=== PATIENT | female | born 1935 | race Caucasian/White ===

== ENCOUNTER → 2016-08-29 | Outpatient (CLI) | payer MEDICARE, BC ==
--- NOTE | 2016-09-02 07:56 | MM ---
Reason for exam: screening (asymptomatic). Last mammogram was performed 1 year ago. History: Patient is postmenopausal. Family history of premenopausal breast cancer in grandmother at age 27. Benign right mammotome panel of the right breast, February 06, 2005. Benign right mammotome panel of the right breast, February 06, 2005. Benign excisional biopsy of the left breast, October 15, 2001. Benign stereotactic core biopsy of the left breast, January 22, 2001. Benign core biopsy of the left breast. Benign excisional biopsy of the left breast. Physical Findings: A clinical breast exam by your physician is recommended on an annual basis and results should be correlated with mammographic findings. MG 3D Screening Mammo W/Cad Bilateral CC and MLO view(s) were taken. Prior study comparison: August 18, 2015, bilateral MG 3d screening mammo w/cad. August 09, 2014, bilateral MG screening mammo w CAD. There are scattered fibroglandular densities. Finding #1: There is a typically benign masses in the right breast, stable. Finding #2: There are numerous typically benign diffuse calcifications in both breasts. No significant changes in finding since August 09, 2014. Left pacemaker over axilla. ASSESSMENT: Benign, BI-RAD 2 RECOMMENDATION: Routine screening mammogram of both breasts in 1 year.
== END | disposition home or self-care (01) ==
LOC: RADMAMWWP 11:08
PROVIDERS: ATTEND Family Medicine
DX: Z12.31 Encounter for screening mammogram for malignant neoplasm of breast (principal)
CPT/HCPCS: 77063; G0202

== ENCOUNTER → 2017-10-28 | Outpatient (CLI) | payer MEDICARE, BC ==
--- NOTE | 2017-10-30 07:57 | MM ---
Reason for exam: screening (asymptomatic). Last mammogram was performed 1 year and 2 months ago. History: Patient is postmenopausal. Family history of premenopausal breast cancer in grandmother at age 27. Benign right mammotome panel of the right breast, February 06, 2005. Benign right mammotome panel of the right breast, February 06, 2005. Benign excisional biopsy of the left breast, October 15, 2001. Benign stereotactic core biopsy of the left breast, January 22, 2001. Benign core biopsy of the left breast. Benign excisional biopsy of the left breast. Physical Findings: A clinical breast exam by your physician is recommended on an annual basis and results should be correlated with mammographic findings. MG 3D Screening Mammo W/Cad Bilateral CC and MLO view(s) were taken. Prior study comparison: August 29, 2016, bilateral MG 3d screening mammo w/cad. August 18, 2015, bilateral MG 3d screening mammo w/cad. The breast tissue is heterogeneously dense. This may lower the sensitivity of mammography. There is a benign appearing oval circumscribed stable anterior depth right lower inner quadrant mass. Benign appearing bilateral calcifications. No suspicious abnormality. Left cardiac device. No significant changes when compared with prior studies. ASSESSMENT: Benign, BI-RAD 2 RECOMMENDATION: Routine screening mammogram of both breasts in 1 year.
== END | disposition home or self-care (01) ==
LOC: RADMAMWWP 07:56
PROVIDERS: ATTEND Family Medicine
DX: Z12.31 Encounter for screening mammogram for malignant neoplasm of breast (principal)
CPT/HCPCS: 77063; 77067

== ENCOUNTER → 2018-01-17 | Outpatient (CLI) | payer MEDICARE, BC ==
--- NOTE | 2018-01-18 09:40 | CT ---
EXAMINATION TYPE: CT lumbar spine wo con DATE OF EXAM: 01/17/2018 9:49 AM COMPARISON: None HISTORY: Scoliosis, spinal stenosis CT DLP: 507.3 mGycm Automated exposure control for dose reduction was used. Unenhanced CT of the lumbar spine was performed. Bone and soft tissue window settings are submitted as well as coronal and sagittal reconstructions. There are bilateral punctate nonobstructing renal calculi bilaterally. Extensive vascular calcificati ons are seen. There is a levoscoliosis of the vertebral column with multilevel moderate to severe degenerative disc disease and the most marked findings at levels L2-3, L4-5 and L5-S1. No compression deformities. L1-L2: Hypertrophic change of the facets. There is a calcification in the right neural foramina. Lorena ures 3 mm. No canal stenosis or focal herniation L2-L3: Severe degenerative disc disease. There is more advanced facet arthropathy greater on the righ t with mild bilateral foraminal encroachment. No central stenosis. L3-L4: Degenerative disc disease with advanced facet arthropathy. There is mild bilateral foraminal e ncroachment. No evidence of canal stenosis. L4-L5: Grade 1 anterolisthesis with severe facet arthropathy. Moderate to severe central stenosis and moderate bilateral foraminal encroachment L5-S1: Severe degenerative disc space. Advanced facet arthropathy with moderate bilateral foraminal e ncroachment. Mild central disc bulging effaces the thecal sac and likely results in component of cent ral stenosis. Note is made to due to noncontrast technique assessment spinal canal is somewhat limited due to corre lation recommended. IMPRESSION: 1. Levoscoliosis with multilevel moderate to severe degenerative disc disease as discussed above. 2. Grade 1 anterolisthesis L4 and L5 appears degenerative with severe facet arthropathy. Findings res ult in moderate to severe central stenosis and bilateral foraminal encroachment. 3. Disc bulging with hypertrophic changes L5-S1 results in borderline to mild central stenosis and bi lateral foraminal encroachment.
== END ==
LOC: RADCTMAIN 08:44
PROVIDERS: ATTEND Physical Medicine & Rehabilitation
DX: M48.07 Spinal stenosis, lumbosacral region (principal); M43.16 Spondylolisthesis, lumbar region; M51.17 Intervertebral disc disorders with radiculopathy, lumbosacral region; M41.86 Other forms of scoliosis, lumbar region; M46.96 Unspecified inflammatory spondylopathy, lumbar region
CPT/HCPCS: 72131

== ENCOUNTER → 2018-02-02 | Outpatient (CLI) | payer MEDICARE, BC ==
[2018-02-02 10:03] LABS: INR 1.1 (<1.2)
== END ==
LOC: LABWHC1 09:04
PROVIDERS: ATTEND Physical Medicine & Rehabilitation
DX: M48.062 Spinal stenosis, lumbar region with neurogenic claudication (principal); M43.16 Spondylolisthesis, lumbar region; M47.27 Other spondylosis with radiculopathy, lumbosacral region; M41.26 Other idiopathic scoliosis, lumbar region; I11.9 Hypertensive heart disease without heart failure; R20.2 Paresthesia of skin; Z68.27 Body mass index [BMI] 27.0-27.9, adult; Z51.81 Encounter for therapeutic drug level monitoring; Z79.01 Long term (current) use of anticoagulants
CPT/HCPCS: 36415; 85610

== ENCOUNTER → 2018-02-23 | Outpatient (CLI) | payer MEDICARE, BC ==
[2018-02-23 10:37] LABS: INR 1.2 (<1.2); Prothrombin Time 11.9 sec (9.0-12.0)
== END | disposition home or self-care (01) ==
LOC: LABWHC1 08:39
PROVIDERS: ATTEND Physical Medicine & Rehabilitation
DX: M48.062 Spinal stenosis, lumbar region with neurogenic claudication (principal); M41.26 Other idiopathic scoliosis, lumbar region; M43.16 Spondylolisthesis, lumbar region; M47.26 Other spondylosis with radiculopathy, lumbar region; M47.818 Spondylosis without myelopathy or radiculopathy, sacral and sacrococcygeal region; I11.9 Hypertensive heart disease without heart failure; R20.2 Paresthesia of skin; Z79.01 Long term (current) use of anticoagulants; Z95.0 Presence of cardiac pacemaker
CPT/HCPCS: 36415; 85610

== ENCOUNTER → 2018-03-25 | Outpatient (CLI) | payer MEDICARE, BC ==
[2018-03-25 11:55] LABS: INR 1.5 (<1.2); Prothrombin Time 13.8 sec (9.0-12.0)
== END | disposition home or self-care (01) ==
LOC: LABWHC1 09:51
PROVIDERS: ATTEND Physical Medicine & Rehabilitation
DX: Z51.81 Encounter for therapeutic drug level monitoring (principal); I51.9 Heart disease, unspecified; I10 Essential (primary) hypertension; Z79.01 Long term (current) use of anticoagulants
CPT/HCPCS: 36415; 85610

== ENCOUNTER → 2018-04-13 | Outpatient (CLI) | payer MEDICARE, BC ==
[2018-04-13 09:48] LABS: INR 1.1 (<1.2); Prothrombin Time 11.9 sec (9.0-12.0)
== END ==
LOC: LABWHC1 08:33
PROVIDERS: ATTEND Physical Medicine & Rehabilitation
DX: M48.062 Spinal stenosis, lumbar region with neurogenic claudication (principal); M41.26 Other idiopathic scoliosis, lumbar region; M47.817 Spondylosis without myelopathy or radiculopathy, lumbosacral region; M43.16 Spondylolisthesis, lumbar region; Z51.81 Encounter for therapeutic drug level monitoring; Z79.01 Long term (current) use of anticoagulants
CPT/HCPCS: 36415; 85610

== ENCOUNTER → 2018-08-03 | Outpatient (CLI) | payer MEDICARE, BC ==
[2018-08-03 10:13] LABS: INR 1.1 (<1.2); Prothrombin Time 11.3 sec (9.0-12.0)
== END | disposition home or self-care (01) ==
LOC: LABWHC1 08:20
PROVIDERS: ATTEND Physical Medicine & Rehabilitation
DX: Z51.81 Encounter for therapeutic drug level monitoring (principal); Z79.01 Long term (current) use of anticoagulants
CPT/HCPCS: 36415; 85610

== ENCOUNTER 2018-08-24 08:08 | Inpatient (IN) | payer MEDICARE, BC ==
--- NOTE | 2018-08-24 08:36 | ED ---
General Adult HPI - General Chief complaint: GI Bleed Stated complaint: rectal bleeding Time Seen by Provider: 08/24/18 08:10 Source: patient, RN notes reviewed Mode of arrival: ambulatory Limitations: no limitations - History of Present Illness Initial comments: This is an 82-year-old female who presents emergency Department complaining of rectal bleeding. Patient states it started yesterday afternoon he continued to the evening. Patient states she's had no pain she has not lightheaded or dizzy. Patient denies any shortness of breath or difficulty breathing. Patient states she has a history of hemorrhoids. She does have a history of some bleeding but not this much. Patient states she is on Coumadin for atrial fibrillation. Patient denies any other symptoms at this time. - Related Data Home Medications Medication Instructions Recorded Confirmed Levothyroxine Sodium [Synthroid] 25 mcg PO DAILY 12/13/13 08/24/18 Lisinopril [Prinivil] 20 mg PO BID 12/13/13 08/24/18 Metoprolol Tartrate [Lopressor] 25 mg PO BID 12/13/13 08/24/18 amLODIPine 5 mg PO BID 12/13/13 08/24/18 Aspirin 81 mg PO DAILY 05/08/14 08/24/18 Calcium Carbonate/Vitamin D3 1 each PO DAILY 08/05/14 08/24/18 [Calcium 600 + Vit D Tablet] Hydrochlorothiazide 25 mg PO DAILY 08/05/14 08/24/18 Pravastatin Sodium [Pravachol] 20 mg PO DAILY 08/05/14 08/24/18 Warfarin [Coumadin] 5 mg PO DAILY 08/24/18 08/24/18 Allergies Allergy/AdvReac Type Severity Reaction Status Date / Time narcotic AdvReac Nausea & Uncoded 08/24/18 08:34 Vomiting Review of Systems ROS Statement: Those systems with pertinent positive or pertinent negative responses have been documented in the HPI. ROS Other: All systems not noted in ROS Statement are negative. Past Medical History Past Medical History: Coronary Artery Disease (CAD), Hypertension, Thyroid Disorder Additional Past Medical History / Comment(s): afib, sinus bradycardia History of Any Multi-Drug Resistant Organisms: None Reported Past Surgical History: AICD, Heart Catheterization, Tonsillectomy, Tubal Ligation Additional Past Surgical History / Comment(s): pacemaker Past Anesthesia/Blood Transfusion Reactions: No Reported Reaction Past Psychological History: No Psychological Hx Reported Smoking Status: Never smoker Past Alcohol Use History: Occasional Past Drug Use History: None Reported General Exam - General Exam Comments Initial Comments: GENERAL: Patient is well-developed and well-nourished. Patient is nontoxic and well- hydrated and is in distress. ENT: Neck is soft and supple. No significant lymphadenopathy is noted. Oropharynx is clear. Moist mucous membranes. Neck has full range of motion without eliciting any pain. EYES: The sclera were anicteric and conjunctiva were pink and moist. Extraocular movements were intact and pupils were equal round and reactive to light. Eyelids were unremarkable. PULMONARY: Unlabored respirations. Good breath sounds bilaterally. No audible rales rhonchi or wheezing was noted. CARDIOVASCULAR: There is a regular rate and rhythm without any murmurs gallops or rubs. ABDOMEN: Soft and nontender with normal bowel sounds. No palpable organomegaly was noted. There is no palpable pulsatile mass. SKIN: Skin is clear with no lesions or rashes and otherwise unremarkable. NEUROLOGIC: Patient is alert and oriented x3. Cranial nerves II through XII are grossly intact. Motor and sensory are also intact. Normal speech, volume and content. Symmetrical smile. MUSCULOSKELETAL: Normal extremities with adequate strength and full range of motion. LYMPHATICS: No significant lymphadenopathy is noted PSYCHIATRIC: Normal psychiatric evaluation. Limitations: no limitations Course Vital Signs 08/24/18 08:09 Temperature 97.8 F Pulse Rate 92 Respiratory 18 Rate Blood Pressure 121/79 O2 Sat by Pulse 98 Oximetry Medical Decision Making - Medical Decision Making Patient had no active bleeding while in the emergency department. I did a rectal exam on the patient I saw no obvious sites of bleeding. - Lab Data Result diagrams: 08/24/18 08:35 08/24/18 08:35 Lab Results 08/24/18 08/24/18 08/24/18 Range/Units 08:35 08:35 08:35 WBC 10.4 (3.8-10.6) k/uL RBC 4.45 (3.80-5.40) m/uL Hgb 14.1 (11.4-16.0) gm/dL Hct 41.5 (34.0-46.0) % MCV 93.2 (80.0-100.0) fL MCH 31.7 (25.0-35.0) pg MCHC 34.0 (31.0-37.0) g/dL RDW 13.1 (11.5-15.5) % Plt Count 355 (150-450) k/uL Neutrophils % 81 % Lymphocytes % 11 % Monocytes % 6 % Eosinophils % 1 % Basophils % 0 % Neutrophils # 8.4 H (1.3-7.7) k/uL Lymphocytes # 1.1 (1.0-4.8) k/uL Monocytes # 0.6 (0-1.0) k/uL Eosinophils # 0.1 (0-0.7) k/uL Basophils # 0.0 (0-0.2) k/uL PT 20.6 H (9.0-12.0) sec INR 2.1 H (<1.2) APTT 30.7 H (22.0-30.0) sec Sodium 135 L (137-145) mmol/L Potassium 3.1 L (3.5-5.1) mmol/L Chloride 99 (98-107) mmol/L Carbon Dioxide 27 (22-30) mmol/L Anion Gap 9 mmol/L BUN 17 (7-17) mg/dL Creatinine 0.55 (0.52-1.04) mg/dL Est GFR (CKD-EPI)AfAm >90 (>60 ml/min/1.73 sqM) Est GFR (CKD-EPI)NonAf 88 (>60 ml/min/1.73 sqM) Glucose 133 H (74-99) mg/dL Calcium 9.5 (8.4-10.2) mg/dL Total Bilirubin 1.1 (0.2-1.3) mg/dL AST 26 (14-36) U/L ALT 35 (9-52) U/L Alkaline Phosphatase 80 (38-126) U/L Troponin I (0.000-0.034) ng/mL Total Protein 6.8 (6.3-8.2) g/dL Albumin 4.1 (3.5-5.0) g/dL Blood Type Blood Type Confirm Blood Type Recheck Antibody Screen Spec Expiration Date 08/24/18 08/24/18 08/24/18 Range/Units 08:35 08:35 09:29 WBC (3.8-10.6) k/uL RBC (3.80-5.40) m/uL Hgb (11.4-16.0) gm/dL Hct (34.0-46.0) % MCV (80.0-100.0) fL MCH (25.0-35.0) pg MCHC (31.0-37.0) g/dL RDW (11.5-15.5) % Plt Count (150-450) k/uL Neutrophils % % Lymphocytes % % Monocytes % % Eosinophils % % Basophils % % Neutrophils # (1.3-7.7) k/uL Lymphocytes # (1.0-4.8) k/uL Monocytes # (0-1.0) k/uL Eosinophils # (0-0.7) k/uL Basophils # (0-0.2) k/uL PT (9.0-12.0) sec INR (<1.2) APTT (22.0-30.0) sec Sodium (137-145) mmol/L Potassium (3.5-5.1) mmol/L Chloride (98-107) mmol/L Carbon Dioxide (22-30) mmol/L Anion Gap mmol/L BUN (7-17) mg/dL Creatinine (0.52-1.04) mg/dL Est GFR (CKD-EPI)AfAm (>60 ml/min/1.73 sqM) Est GFR (CKD-EPI)NonAf (>60 ml/min/1.73 sqM) Glucose (74-99) mg/dL Calcium (8.4-10.2) mg/dL Total Bilirubin (0.2-1.3) mg/dL AST (14-36) U/L ALT (9-52) U/L Alkaline Phosphatase (38-126) U/L Troponin I <0.012 (0.000-0.034) ng/mL Total Protein (6.3-8.2) g/dL Albumin (3.5-5.0) g/dL Blood Type O Positive Blood Type Confirm O Positive Blood Type Recheck CABO Indicated Antibody Screen NEGATIVE Spec Expiration Date 08/27/2018 - 2334 Disposition Clinical Impression: Gastrointestinal hemorrhage Disposition: ADMITTED IP TO THIS [facility] Referrals: Mil Mujica III, MD [Primary Care Provider] - 1-2 days Time of Disposition: 09:49
[2018-08-24 08:49] LABS: Basophils % (A) 0 %; Eosinophils # (A) 0.1 k/uL (0-0.7); Eosinophils % (A) 1 %; HCT 41.5 % (34.0-46.0); HGB 14.1 gm/dL (11.4-16.0); Lymphocytes # (A) 1.1 k/uL (1.0-4.8); Lymphocytes % (A) 11 %; MCH 31.7 pg (25.0-35.0); MCV 93.2 fL (80.0-100.0); Mean Platelet Volume 6.8; Monocytes # (A) 0.6 k/uL (0-1.0); Monocytes % (A) 6 %; Neutrophils # (A) 8.4 k/uL (1.3-7.7); Neutrophils % (A) 81 %; Platelet Count 355 k/uL (150-450); RBC 4.45 m/uL (3.80-5.40); RDW 13.1 % (11.5-15.5); WBC 10.4 k/uL (3.8-10.6)
[2018-08-24 08:57] LABS: INR 2.1 (<1.2)
[2018-08-24 08:58] LABS: ALT 35 U/L (9-52); AST 26 U/L (14-36); Albumin 4.1 g/dL (3.5-5.0); Alkaline Phosphatase 80 U/L (38-126); Anion Gap 9 mmol/L; Blood Urea Nitrogen 17 mg/dL (7-17); Calcium 9.5 mg/dL (8.4-10.2); Carbon Dioxide 27 mmol/L (22-30); Chloride 99 mmol/L (98-107); Glucose 133 mg/dL (74-99); Partial Thromboplastin Time 30.7 sec (22.0-30.0); Potassium 3.1 mmol/L (3.5-5.1); Prothrombin Time 20.6 sec (9.0-12.0); Sodium 135 mmol/L (137-145); Total Bilirubin 1.1 mg/dL (0.2-1.3); Total Protein 6.8 g/dL (6.3-8.2)
[2018-08-24] MEDS ORDERED: SODIUM CHLORIDE 0.9% 1,000 ML IV ONE (09:49)
[2018-08-24 12:03] VITALS: BMI 27.4
--- NOTE | 2018-08-24 14:33 | P.HPIM ---
History of Present Illness This is a pleasant 82 years old female with past medical history of atrial fibrillation on anticoagulation, hyperlipidemia, hypertension, hypothyroidism, bradycardia status post pacemaker, coronary artery disease status post AICD h istory of hemorrhoids and kidney stones. She is a patient of Dr. Dr. Mujica. Who presents because of GI bleed, patient had blood in stool, as a fresh blood however she couldn't tell the color of her on stool. Patient has a picture at bedside in her mobile phone for blood in her underwear. Patient complaining of from mild lower abdominal pain which was more severe yesterday but today is milder that comes and go and by the time I see the patient she was pain-free. Her abdominal examination was benign. She said that the pain felt like gas. She also vomited once with no blood in it. She states that she takes the Coumadin for her atrial fibrillation, no previous thrombosis in her leg, lung or heart as per patient. And she says she has pacemaker but no stents in her heart. On admission her Coumadin and aspirin are held Vitals are stable. Hemoglobin 14.1, rest of labs looks unremarkable except for low potassium at 3.1 and INR of 2.1 Patient was on no muscle and 75 mL/h, we'll order to 50 mL per hour as patient blood pressure and hemoglobin are stable currently Review of Systems CONSTITUTIONAL: No fever, no malaise, no fatigue. HEENT: No recent visual problems or hearing problems. Denied any sore throat. CARDIOVASCULAR: No orthopnea, PND, no palpitations, no syncope. PULMONARY: No shortness of breath, no cough, no hemoptysis. GASTROINTESTINAL: No diarrhea, no nausea, no vomiting, no abdominal pain. Normoactive bowel sounds. NEUROLOGICAL: No headaches, no weakness, no numbness. HEMATOLOGICAL: Denies any bleeding or petechiae. GENITOURINARY: Denies any burning micturition, frequency, or urgency. MUSCULOSKELETAL/RHEUMATOLOGICAL: Denies any joint pain, swelling, or any muscle pain. ENDOCRINE: Denies any polyuria or polydipsia. Past Medical History Past Medical History: Atrial Fibrillation, Hyperlipidemia, Hypertension, Thyroid Disorder Additional Past Medical History / Comment(s): Bradycardia with pacemaker, past slight lower GI bleed, hemorrhoids, hypothyroid, nephrolithiasis. History of Any Multi-Drug Resistant Organisms: None Reported Past Surgical History: AICD, Breast Surgery, Heart Catheterization, Pacemaker, Tonsillectomy, Tubal Ligation Additional Past Surgical History / Comment(s): pacemaker, lithotripsy, bilateral breast benign bxs, + blood per cologard-colonoscopy about 05/2017-normal Past Anesthesia/Blood Transfusion Reactions: No Reported Reaction Type of Cardiac Device: Permanent Pacemaker Device Placement Date:: 2013 Smoking Status: Never smoker - Past Family History Father Family Medical History: Myocardial Infarction (DC) Additional Family Medical History / Comment(s): Father of a DC at the age of 63 yrs. Mother Additional Family Medical History / Comment(s): Mother had issues with alcohol and PDA. Medications and Allergies Home Medications Medication Instructions Recorded Confirmed Type Levothyroxine Sodium [Synthroid] 25 mcg PO DAILY 12/13/13 08/24/18 History Lisinopril [Prinivil] 20 mg PO BID 12/13/13 08/24/18 History Metoprolol Tartrate [Lopressor] 25 mg PO BID 12/13/13 08/24/18 History amLODIPine 5 mg PO BID 12/13/13 08/24/18 History Aspirin 81 mg PO DAILY 05/08/14 08/24/18 History Calcium Carbonate/Vitamin D3 1 each PO DAILY 08/05/14 08/24/18 History [Calcium 600 + Vit D Tablet] Hydrochlorothiazide 25 mg PO DAILY 08/05/14 08/24/18 History Pravastatin Sodium [Pravachol] 20 mg PO DAILY 08/05/14 08/24/18 History Warfarin [Coumadin] 5 mg PO DAILY 08/24/18 08/24/18 History Allergies Allergy/AdvReac Type Severity Reaction Status Date / Time narcotic AdvReac Nausea & Uncoded 08/24/18 08:34 Vomiting Physical Exam Vitals: Vital Signs Temp Pulse Resp BP Pulse Ox 08/24/18 10:11 71 16 120/79 98 08/24/18 08:09 97.8 F 92 18 121/79 98 Intake and Output 08/23/18 08/24/18 08/24/18 22:59 06:59 14:59 Other: Weight 68.039 kg GENERAL: The patient is alert and oriented x3, not in any acute distress. Well developed, well nourished. HEENT: Pupils are round and equally reacting to light. EOMI. No scleral icterus. No conjunctival pallor. Normocephalic, atraumatic. No pharyngeal erythema. No thyromegaly. CARDIOVASCULAR: S1 and S2 present. No murmurs, rubs, or gallops. PULMONARY: Chest is clear to auscultation, no wheezing or crackles. ABDOMEN: Soft, nontender, nondistended, normoactive bowel sounds. No palpable organomegaly. MUSCULOSKELETAL: No joint swelling or deformity. EXTREMITIES: No cyanosis, clubbing, or pedal edema. NEUROLOGICAL: Gross neurological examination did not reveal any focal deficits. SKIN: No rashes. Results CBC & Chem 7: 08/24/18 08:35 08/24/18 08:35 Labs: Abnormal Lab Results - Last 24 Hours (Table) 08/24/18 08/24/18 08/24/18 Range/Units 08:35 08:35 08:35 Neutrophils # 8.4 H (1.3-7.7) k/uL PT 20.6 H (9.0-12.0) sec INR 2.1 H (<1.2) APTT 30.7 H (22.0-30.0) sec Sodium 135 L (137-145) mmol/L Potassium 3.1 L (3.5-5.1) mmol/L Glucose 133 H (74-99) mg/dL Thrombosis Risk Factor Assmnt - Choose All That Apply Any of the Below Risk Factors Present?: Yes Each Factor Represents 1 point: Obesity (BMI >25) Other Risk Factors: Yes Each Risk Factor Represents 3 Points: Age 75 years or older Other congenital or acquired thrombophilia - If yes, enter type in comment: No Thrombosis Risk Factor Assessment Total Risk Factor Score: 4 Thrombosis Risk Factor Assessment Level: Moderate Risk Assessment and Plan Assessment: Bleeding per rectum History of chronic atrial fibrillation on anticoagulation Hyperlipidemia Hypertension Hypothyroidism History of bradycardia status post pacemaker History of coronary artery disease. She is a status post AICD History of hemorrhoids Plan: This is a pleasant 82 years old female who presents because of GI bleeds. Hold Coumadin and aspirin total cleared by GI team. Consult gastroenterology. Continue with Protonix twice daily. Monitor vitals and hemoglobin Labs and medication were reviewed.. Continue same treatment. Continue with symptomatic treatment. Resume home medication. Monitor lytes and vitals. DVT and GI prophylaxis. Further recommendations of the clinical course of the patient DVT prophylaxis: No anticoagulation review of GI bleed GI Prophylaxis: Pepcid PT/OT: Pending Prognosis is guarded
[2018-08-24 16:04] LABS: Basophils % (A) 0 %; Eosinophils # (A) 0.1 k/uL (0-0.7); Eosinophils % (A) 1 %; HCT 40.8 % (34.0-46.0); HGB 13.7 gm/dL (11.4-16.0); Lymphocytes # (A) 1.9 k/uL (1.0-4.8); Lymphocytes % (A) 18 %; MCH 31.3 pg (25.0-35.0); MCHC 33.5 g/dL (31.0-37.0); MCV 93.4 fL (80.0-100.0); Monocytes # (A) 0.5 k/uL (0-1.0); Monocytes % (A) 5 %; Neutrophils # (A) 7.7 k/uL (1.3-7.7); Neutrophils % (A) 74 %; Platelet Count 346 k/uL (150-450); RBC 4.37 m/uL (3.80-5.40); RDW 13.5 % (11.5-15.5); WBC 10.4 k/uL (3.8-10.6)
[2018-08-24] MEDS: PANTOPRAZOLE 40 MG/10 ML VIAL IVP SCH (20:45)
[2018-08-24] MEDS: METOPROLOL TARTRATE 25 MG TAB PO SCH (20:45)
[2018-08-24] MEDS: LISINOPRIL 20 MG TAB PO SCH (20:45)
[2018-08-24] MEDS: amLODIPine 5 MG TAB PO SCH (20:45)
[2018-08-25] MEDS: LEVOTHYROXINE 25 MCG TAB PO SCH (06:17)
[2018-08-25 07:09] LABS: Basophils % (A) 0 %; Eosinophils # (A) 0.2 k/uL (0-0.7); Eosinophils % (A) 2 %; HCT 39.4 % (34.0-46.0); HGB 13.2 gm/dL (11.4-16.0); Lymphocytes # (A) 1.7 k/uL (1.0-4.8); Lymphocytes % (A) 19 %; MCHC 33.4 g/dL (31.0-37.0); MCV 92.8 fL (80.0-100.0); Mean Platelet Volume 6.9; Monocytes # (A) 0.5 k/uL (0-1.0); Monocytes % (A) 6 %; Neutrophils % (A) 70 %; Platelet Count 327 k/uL (150-450); RBC 4.25 m/uL (3.80-5.40); RDW 13.7 % (11.5-15.5); WBC 8.6 k/uL (3.8-10.6)
[2018-08-25 07:18] LABS: Anion Gap 6 mmol/L; Blood Urea Nitrogen 8 mg/dL (7-17); Calcium 9.1 mg/dL (8.4-10.2); Carbon Dioxide 27 mmol/L (22-30); Chloride 100 mmol/L (98-107); Glucose 106 mg/dL (74-99); Potassium 3.3 mmol/L (3.5-5.1); Sodium 133 mmol/L (137-145)
[2018-08-25] MEDS: PRAVASTATIN SODIUM 20 MG TAB PO SCH (07:47)
[2018-08-25] MEDS: METOPROLOL TARTRATE 25 MG TAB PO SCH ×2 (07:47→21:02)
[2018-08-25] MEDS: PANTOPRAZOLE 40 MG/10 ML VIAL IVP SCH ×2 (07:48→21:01)
[2018-08-25] MEDS: amLODIPine 5 MG TAB PO SCH ×2 (07:48→21:02)
[2018-08-25] MEDS: LISINOPRIL 20 MG TAB PO SCH ×2 (07:48→21:02)
[2018-08-25] MEDS: HYDROCHLOROTHIAZIDE 25 MG TAB PO SCH (07:48)
[2018-08-25] MEDS ORDERED: Potassium Replacement Protocol 1 EACH MISC MISCELLANE PRN ×2 (13:21→16:16)
--- NOTE | 2018-08-25 13:21 | P.PN ---
Subjective This is a pleasant 82 years old female with past medical history of atrial fibrillation on anticoagulation, hyperlipidemia, hypertension, hypothyroidism, bradycardia status post pacemaker, coronary artery disease status post AICD history of hemorrhoids and kidney stones. She is a patient of Dr. Dr. Mujica. Who presents because of GI bleed, patient had blood in stool, as a fresh blood however she couldn't tell the color of her on stool. Patient has a picture at bedside in her mobile phone for blood in her underwear. Patient complaining of from mild lower abdominal pain which was more severe yesterday but today is milder that comes and go and by the time I see the patient she was pain-free. Her abdominal examination was benign. She said that the pain felt like gas. She also vomited once with no blood in it. She states that she takes the Coumadin for her atrial fibrillation, no previous thrombosis in her leg, lung or heart as per patient. And she says she has pacemaker but no stents in her heart. On admission her Coumadin and aspirin are held Vitals are stable. Hemoglobin 14.1, rest of labs looks unremarkable except for low potassium at 3.1 and INR of 2.1 Patient was on no muscle and 75 mL/h, we'll order to 50 mL per hour as patient blood pressure and hemoglobin are stable currently 08/25/2018 Patient has no more episodes of bleeding per rectum. Vitals are Table. Hemoglobin is stable at 13.2 which is within normal limits. Sodium 133 and potassium 3.3. Replaced GI team are going to evaluate the patient. Continue with Protonix currently Objective - Vital Signs Vital signs: Vital Signs Temp 97.7 F 08/25/18 12:00 Pulse 69 08/25/18 12:00 Resp 18 08/25/18 12:00 BP 147/65 08/25/18 12:00 Pulse Ox 94 L 08/25/18 12:00 Intake & Output 08/24/18 08/25/18 08/25/18 18:59 06:59 18:59 Intake Total 360 600 Output Total 300 Balance 360 600 -300 Weight 68.039 kg 70.9 kg Intake: IV 600 0.9 600 Oral 360 Output: Urine 300 Other: Voiding Method Toilet Toilet # Voids 1 - Exam GENERAL: The patient is alert and oriented x3, not in any acute distress. Well developed, well nourished. HEENT: Pupils are round and equally reacting to light. EOMI. No scleral icterus. No conjunctival pallor. Normocephalic, atraumatic. No pharyngeal erythema. No thyromegaly. CARDIOVASCULAR: S1 and S2 present. No murmurs, rubs, or gallops. PULMONARY: Chest is clear to auscultation, no wheezing or crackles. ABDOMEN: Soft, nontender, nondistended, normoactive bowel sounds. No palpable organomegaly. MUSCULOSKELETAL: No joint swelling or deformity. EXTREMITIES: No cyanosis, clubbing, or pedal edema. NEUROLOGICAL: Gross neurological examination did not reveal any focal deficits. SKIN: No rashes. - Labs CBC & Chem 7: 08/25/18 06:14 08/25/18 06:14 Labs: Abnormal Lab Results - Last 24 Hours (Table) 08/25/18 Range/Units 06:14 Sodium 133 L (137-145) mmol/L Potassium 3.3 L (3.5-5.1) mmol/L Creatinine 0.46 L (0.52-1.04) mg/dL Glucose 106 H (74-99) mg/dL Assessment and Plan Assessment: Bleeding per rectum History of chronic atrial fibrillation on anticoagulation Hyperlipidemia Hypertension Hypothyroidism History of bradycardia status post pacemaker History of coronary artery disease. She is a status post AICD History of hemorrhoids Plan: This is a pleasant 82 years old female who presents because of GI bleeds. Hold Coumadin and aspirin total cleared by GI team. Consult gastroenterology. Continue with Protonix twice daily. Monitor vitals and hemoglobin Labs and medication were reviewed.. Continue same treatment. Continue with symptomatic treatment. Resume home medication. Monitor lytes and vitals. DVT and GI prophylaxis. Further recommendations of the clinical course of the patient DVT prophylaxis: No anticoagulation review of GI bleed GI Prophylaxis: Pepcid PT/OT: Pending Prognosis is guarded
--- NOTE | 2018-08-25 13:25 | P.CONS ---
History of Present Illness - Reason for Consult Consult date: 08/25/18 GI bleed hematochezia Requesting physician: Landon E Sheet - Chief Complaint rectal bleeding - History of Present Illness 82-year-old female with a past medical history of atrial fibrillation maintained on warfarin, colonic diverticulosis, pacemaker,hypertension, hyperlipidemia admitted with episode of rectal bleeding yesterday. Patient states she ate at [employer] developed some mild abdominal discomfort mostly in the lower quadrants and passed a grossly bloody bowel movement with clots. No recurrence of GI bleeding. No history GI bleeding. No history of PUD. No constipation. Denies epigastric pain. No nausea vomiting. Afebrile. She states her last colonoscopy was in May 2017 with findings of colonic diverticulosis.ast dose of warfarin 2 days ago. Admission hemoglobin 14.1 presently 13.2. INR 2.1. Receive vitamin K. BUN 17. Creatinine 0.5. Platelets 355. No NSAIDs or alcohol. Baby aspirin daily. Review of Systems Constitutional: Denies fever, chills, sweats, weight gain, or loss. HEENT: Negative for migraines, blurred vision or loss, earaches, drainage, tinnitus, oral mucosal lesions, dysphagia, or odynophagia. CARDIAC: Negative for chest pain, arrhythmias, or palpitation. RESPIRATORY: Negative for shortness of breath, hemoptysis, cough, or sputum production. GI: See HPI for pertinent findings. : Negative for hematuria, urgency, frequency, polyuria, or dysuria. GYNc: Negative vaginal discharge. MUSCULOSKELETAL: Negative for muscle aches, swelling, arthritis, and arthralgias. NEUROLOGIC: Negative for stroke or TIA. ENDOCRINE: Negative for thyroid problems. SKIN: Negative for rash or itching. PSYCHIATRIC: Negative history for depression and anxiety Past Medical History Past Medical History: Atrial Fibrillation, Hyperlipidemia, Hypertension, Thyroid Disorder Additional Past Medical History / Comment(s): Bradycardia with pacemaker, past slight lower GI bleed, hemorrhoids, hypothyroid, nephrolithiasis. History of Any Multi-Drug Resistant Organisms: None Reported Past Surgical History: AICD, Breast Surgery, Heart Catheterization, Pacemaker, Tonsillectomy, Tubal Ligation Additional Past Surgical History / Comment(s): pacemaker, lithotripsy, bilateral breast benign bxs, + blood per cologard-colonoscopy about 05/2017-normal Past Anesthesia/Blood Transfusion Reactions: No Reported Reaction Type of Cardiac Device: Permanent Pacemaker Device Placement Date:: 2013 Smoking Status: Never smoker - Past Family History Father Family Medical History: Myocardial Infarction ([place]) Additional Family Medical History / Comment(s): Father of a [place] at the age of 63 yrs. Mother Additional Family Medical History / Comment(s): Mother had issues with alcohol and PDA. Medications and Allergies Home Medications Medication Instructions Recorded Confirmed Type Levothyroxine Sodium [Synthroid] 25 mcg PO DAILY 12/13/13 08/24/18 History Lisinopril [Prinivil] 20 mg PO BID 12/13/13 08/24/18 History Metoprolol Tartrate [Lopressor] 25 mg PO BID 12/13/13 08/24/18 History amLODIPine 5 mg PO BID 12/13/13 08/24/18 History Aspirin 81 mg PO DAILY 05/08/14 08/24/18 History Calcium Carbonate/Vitamin D3 1 each PO DAILY 08/05/14 08/24/18 History [Calcium 600 + Vit D Tablet] Hydrochlorothiazide 25 mg PO DAILY 08/05/14 08/24/18 History Pravastatin Sodium [Pravachol] 20 mg PO DAILY 08/05/14 08/24/18 History Warfarin [Coumadin] 5 mg PO DAILY 08/24/18 08/24/18 History Allergies Allergy/AdvReac Type Severity Reaction Status Date / Time narcotic AdvReac Nausea & Uncoded 08/24/18 08:34 Vomiting Physical Exam Vitals: Vital Signs Temp Pulse Resp BP Pulse Ox 08/25/18 12:00 97.7 F 69 16 147/65 94 L 08/25/18 07:53 97.6 F 67 16 145/66 93 L 08/25/18 03:14 78 18 08/25/18 03:13 97.0 F L 78 18 117/58 95 08/25/18 00:00 97.1 F L 72 18 119/56 98 08/24/18 20:00 97.5 F L 73 18 139/68 94 L 08/24/18 15:45 97.6 F 73 18 135/72 95 Intake and Output 08/24/18 08/25/18 08/25/18 22:59 06:59 14:59 Intake Total 360 600 Output Total 300 Balance 360 600 -300 Intake: IV 600 0.9 600 Oral 360 Output: Urine 300 Other: Voiding Method Toilet Toilet Toilet # Voids 1 Weight 70.9 kg General appearance: The patient is alert, oriented, in no acute distress. HET: Head is normocephalic and atraumatic. Pupils are equal and reactive. Oropharynx is clear without lesions. Neck: Supple without lymphadenopathy. Trachea midline. Heart: S1 S2. Regular rate and rhythm. Lungs: No crackles or wheezes are heard. Abdomen: Soft, nontender, nondistended with bowel sounds. No peritoneal signs. No palpable organomegaly or masses. Extremities: Normal skin color and turgor. No cyanosis, rash, ulceration, clubbing, or edema. Radial and pedal pulses are 2/4 bilaterally. Neurological: No focal deficits. Strength and sensation are grossly intact. Results CBC & Chem 7: 08/26/18 06:13 08/26/18 06:13 Labs: Abnormal Lab Results - Last 24 Hours (Table) 08/25/18 Range/Units 06:14 Sodium 133 L (137-145) mmol/L Potassium 3.3 L (3.5-5.1) mmol/L Creatinine 0.46 L (0.52-1.04) mg/dL Glucose 106 H (74-99) mg/dL Assessment and Plan (1) Rectal bleeding Narrative/Plan: 82 year old female admitted with rectal bleeding history of underlying atrial fibrillation maintained on warfarin, colonic diverticulosis per reported history of colonoscopy May 2017. Possible acute colonic diverticular bleed exacerbated by coagulopathy possible ischemic colitis possible bleeding A VM.upper GI pathology cannot be entirely excluded however renal function is preserved presently no symptoms of epigastric pain nausea vomiting. Current Visit: Yes Status: Acute Code(s): K62.5 - HEMORRHAGE OF ANUS AND RECTUM SNOMED Code(s): 49040743 (2) Warfarin-induced coagulopathy Current Visit: Yes Status: Acute Code(s): D68.32 - HEMORRHAGIC DISORD D/T EXTRINSIC CIRCULATING ANTICOAGULANTS; T45.515A - ADVERSE EFFECT OF ANTICOAGULANTS, INITIAL ENCOUNTER SNOMED Code(s): 24573468 Plan: 1. Hemoglobin 13.2. No recurrent bloody stool; colonoscopy 1 year ago reported colonic diverticulosis. Clear liquids. CBC monitoring. Hold coumadin. Protonix 40 mg twice daily. Will follow with you. Thank you for this kind referral and the opportunity to participate in the care of your patient. This consultation was discussed with Dr. Bailey. The impression and plan of care have been directed as dictated.
[2018-08-25] MEDS: ACETAMINOPHEN TAB 325 MG TAB PO PRN ×2 (16:36→22:09)
[2018-08-25] MEDS: POTASSIUM CHLORIDE ER 20 MEQ TAB.ER PO SCH ×2 (16:36→17:48)
[2018-08-25 20:17] VITALS: RESP 16
[2018-08-25] MEDS ORDERED: POTASSIUM CHLORIDE ER 20 MEQ TAB.ER PO STA (23:18)
[2018-08-26] MEDS: ACETAMINOPHEN TAB 325 MG TAB PO PRN (03:51)
[2018-08-26] MEDS: LEVOTHYROXINE 25 MCG TAB PO SCH (03:55)
[2018-08-26 06:56] LABS: Basophils % (A) 0 %; Eosinophils # (A) 0.2 k/uL (0-0.7); Eosinophils % (A) 3 %; HCT 40.3 % (34.0-46.0); HGB 13.5 gm/dL (11.4-16.0); Lymphocytes # (A) 1.6 k/uL (1.0-4.8); Lymphocytes % (A) 22 %; MCH 31.4 pg (25.0-35.0); MCHC 33.5 g/dL (31.0-37.0); MCV 93.5 fL (80.0-100.0); Mean Platelet Volume 6.6; Monocytes # (A) 0.5 k/uL (0-1.0); Monocytes % (A) 7 %; Neutrophils # (A) 4.7 k/uL (1.3-7.7); Neutrophils % (A) 66 %; Platelet Count 323 k/uL (150-450); RBC 4.31 m/uL (3.80-5.40); WBC 7.2 k/uL (3.8-10.6)
[2018-08-26 07:03] LABS: INR 1.3 (<1.2); Prothrombin Time 13.3 sec (9.0-12.0)
[2018-08-26 07:06] LABS: Anion Gap 8 mmol/L; Blood Urea Nitrogen 8 mg/dL (7-17); Calcium 9.2 mg/dL (8.4-10.2); Carbon Dioxide 27 mmol/L (22-30); Chloride 98 mmol/L (98-107); Glucose 121 mg/dL (74-99); Potassium 3.5 mmol/L (3.5-5.1); Sodium 133 mmol/L (137-145)
[2018-08-26] MEDS: PANTOPRAZOLE 40 MG/10 ML VIAL IVP SCH (07:33)
[2018-08-26] MEDS: HYDROCHLOROTHIAZIDE 25 MG TAB PO SCH (07:33)
[2018-08-26] MEDS: METOPROLOL TARTRATE 25 MG TAB PO SCH (07:33)
[2018-08-26] MEDS: LISINOPRIL 20 MG TAB PO SCH (07:33)
[2018-08-26] MEDS: PRAVASTATIN SODIUM 20 MG TAB PO SCH (07:33)
[2018-08-26] MEDS: amLODIPine 5 MG TAB PO SCH (07:33)
[2018-08-26 07:43] VITALS: TEMP 97.7
--- NOTE | 2018-08-26 11:11 | P.PN ---
Subjective Progress Note Date: 08/26/18 Principal diagnosis: Rectal bleeding Small bowel movement this morning described as darker old blood appearance. Denies abdominal pain. Afebrile. Hemoglobin stable 13.5. INR 1.3. BUN 8. Creatinine 0.4. Tolerating full liquids. Objective - Vital Signs Vital signs: Vital Signs Temp 97.7 F 08/26/18 07:40 Pulse 70 08/26/18 07:40 Resp 16 08/26/18 07:40 BP 117/65 08/26/18 07:40 Pulse Ox 96 08/26/18 07:40 Intake & Output 08/25/18 08/26/18 08/26/18 18:59 06:59 18:59 Intake Total 480 360 Output Total 300 Balance -300 480 360 Weight 70.6 kg Intake: Oral 480 360 Output: Urine 300 Other: Voiding Method Toilet Toilet # Voids 1 - Exam General appearance: The patient is alert, oriented, in no acute distress. HET: Head is normocephalic and atraumatic. Pupils are equal and reactive. Fareed pharynx is clear without lesions. Neck: Supple without lymphadenopathy. Trachea midline. Heart: S1 S2. Lungs: No crackles or wheezes are heard. Abdomen: Soft, nontender, nondistended with bowel sounds. No peritoneal signs. No palpable organomegaly or masses. Extremities: Normal skin color and turgor. No cyanosis, rash, ulceration, clubbing, or edema. Radial and pedal pulses are 2/4 bilaterally. Neurological: No focal deficits. Strength and sensation are grossly intact. - Labs CBC & Chem 7: 08/26/18 06:13 08/26/18 06:13 Labs: Abnormal Lab Results - Last 24 Hours (Table) 08/26/18 08/26/18 Range/Units 06:13 06:13 PT 13.3 H (9.0-12.0) sec INR 1.3 H (<1.2) Sodium 133 L (137-145) mmol/L Creatinine 0.45 L (0.52-1.04) mg/dL Glucose 121 H (74-99) mg/dL Assessment and Plan (1) Rectal bleeding Narrative/Plan: 82 year old female admitted with rectal bleeding history of underlying atrial fibrillation maintained on warfarin, colonic diverticulosis per reported history of colonoscopy May 2017. Possible acute colonic diverticular bleed exacerbated by coagulopathy possible ischemic colitis possible bleeding AVM.upper GI pathology cannot be entirely excluded however renal function is preserved presently no symptoms of epigastric pain nausea vomiting. Current Visit: Yes Status: Acute Code(s): K62.5 - HEMORRHAGE OF ANUS AND R ECTUM SNOMED Code(s): 72554151 (2) Warfarin-induced coagulopathy Current Visit: Yes Status: Acute Code(s): D68.32 - HEMORRHAGIC DISORD D/T EXTRINSIC CIRCULATING ANTICOAGULANTS; T45.515A - ADVERSE EFFECT OF ANTICOAGULANTS, INITIAL ENCOUNTER SNOMED Code(s): 17483456 Plan: 1. Hemoglobin 13.5. Small bowel movement this a.m with traces of old blood without abdominal pain nausea or vomiting. From a GI standpoint inpatient endoscopy not planned. Will advance to low fiber diet. Okay from a GI stand point to restart aspirin and Coumadin. Follow with PCP in 1 week after discharge for reevaluation and outpatient CBC monitoring as indicated. Assessment and plan a care discussed with Dr. Bailey
--- NOTE | 2018-08-26 11:52 | P.DS ---
Providers Date of admission: 08/24/18 09:50 Attending physician: Nicole Wasserman Primary care physician: Mil Mujica Hospital Course: Diagnoses: Bleeding per rectum, with stable hemoglobin History of chronic atrial fibrillation on anticoagulation Hyperlipidemia Hypertension Hypothyroidism History of bradycardia status post pacemaker History of coronary artery disease. She is a status post AICD History of hemorrhoids Hospital course: This is a pleasant 82 years old female with past medical history of atrial fibrillation on anticoagulation, hyperlipidemia, hypertension, hypothyroidism, bradycardia status post pacemaker, coronary artery disease status post AICD history of hemorrhoids and kidney stones. She is a patient of Dr. Dr. Mujica. Who presents because of GI bleed, patient had blood in stool, as a fresh blood however she couldn't tell the color of her on stool. Patient has a picture at bedside in her mobile phone for blood in her underwear. Hemoglobin remained stable after her Coumadin and aspirin were held, no more episodes of significant bleeding per rectum. Patient has been evaluated by gastroenterology team, patient remained stable and hemoglobin and vitals are stable. Patient is without abdominal pain. No nausea vomiting. She is tolerating her diet well. She has regular bowel movements. No chest pain or dyspnea. No change in urine habits. No fever. I discussed the case with the gastrouenterology team, they cleared her for discharge. And she can resume her Coumadin and aspirin. She will be discharged on Protonix twice a day for 1 month. Patient she will follow up with the GI team to decide if she needs any intervention at that time, no intervention needed for this admission. Patient felt stable and she can go home. Patient problems and management plan was discussed with the patient and family at bedside upon her request and they verbalized understanding and acceptance Patient was found stable and can be discharged home and guarded prognosis however she needs follow-up as an outpatient. Patient agrees with the appointments made for her with her PCP and moth exterminator team and she said she will follow up discharge exam Gen: patient is a AAOx3, no distress CVS: S1-S2, RRR, no murmur Lungs: B/L CTA, no wheezing Abdomen: soft, no distention, no tenderness, positive bowel sounds Extremity: no leg edema or induration Time spent more than 35 minutes Plan - Discharge Summary Discharge Rx Participant: No New Discharge Prescriptions: No Action amLODIPine 5 mg PO BID Lisinopril [Prinivil] 20 mg PO BID Levothyroxine Sodium [Synthroid] 25 mcg PO DAILY Metoprolol Tartrate [Lopressor] 25 mg PO BID Aspirin 81 mg PO DAILY Pravastatin Sodium [Pravachol] 20 mg PO DAILY Hydrochlorothiazide 25 mg PO DAILY Calcium Carbonate/Vitamin D3 [Calcium 600 + Vit D Tablet] 1 each PO DAILY Warfarin [Coumadin] 5 mg PO DAILY Discharge Medication List Levothyroxine Sodium [Synthroid] 25 mcg PO DAILY 12/13/13 [History] Lisinopril [Prinivil] 20 mg PO BID 12/13/13 [History] Metoprolol Tartrate [Lopressor] 25 mg PO BID 12/13/13 [History] amLODIPine 5 mg PO BID 12/13/13 [History] Aspirin 81 mg PO DAILY 05/08/14 [History] Calcium Carbonate/Vitamin D3 [Calcium 600 + Vit D Tablet] 1 each PO DAILY 08/05/14 [History] Hydrochlorothiazide 25 mg PO DAILY 08/05/14 [History] Pravastatin Sodium [Pravachol] 20 mg PO DAILY 08/05/14 [History] Warfarin [Coumadin] 5 mg PO DAILY 08/24/18 [History] Follow up Appointment(s)/Referral(s): Mil Mujica III, MD [Primary Care Provider] - 1-2 days Patient Instructions/Handouts: Gastrointestinal Bleeding (DC)
[2018-08-26 12:03] VITALS: BP 134/63; PULSE 66
[2018-08-26] MEDS ORDERED: PANTOPRAZOLE 40 MG TABLET PO SCH (21:00)
== END 2018-08-26 14:25 | disposition home or self-care (01) | DRG 393 ==
LOC: EC 08:08 → 3SCARD 09:50 → OBSVTOIN 08-26 09:53
PROVIDERS: ADMIT Internal Medicine; ATTEND Internal Medicine
DX: K55.9 Vascular disorder of intestine, unspecified (principal); K57.31 Diverticulosis of large intestine without perforation or abscess with bleeding; I48.2 Chronic atrial fibrillation; E03.9 Hypothyroidism, unspecified; Q27.33 Arteriovenous malformation of digestive system vessel; E78.5 Hyperlipidemia, unspecified; I10 Essential (primary) hypertension; I25.10 Atherosclerotic heart disease of native coronary artery without angina pectoris; R79.1 Abnormal coagulation profile; K64.9 Unspecified hemorrhoids; Z79.01 Long term (current) use of anticoagulants; Z79.82 Long term (current) use of aspirin; Z79.890 Hormone replacement therapy; Z79.899 Other long term (current) drug therapy; Z88.5 Allergy status to narcotic agent; Z87.442 Personal history of urinary calculi; Z95.810 Presence of automatic (implantable) cardiac defibrillator; Z98.51 Tubal ligation status; Z82.49 Family history of ischemic heart disease and other diseases of the circulatory system
CPT/HCPCS: 36415; 80048; 80053; 84484; 85025; 85610; 85730; 86850; 86900; 86901; 99284

== ENCOUNTER → 2018-10-08 | Outpatient (CLI) | payer MEDICARE, BC ==
[2018-10-08 09:55] LABS: HCT 40.9 % (34.0-46.0); HGB 13.6 gm/dL (11.4-16.0); MCH 31.4 pg (25.0-35.0); MCHC 33.3 g/dL (31.0-37.0); MCV 94.3 fL (80.0-100.0); Mean Platelet Volume 7.1; Platelet Count 310 k/uL (150-450); RBC 4.33 m/uL (3.80-5.40); RDW 14.8 % (11.5-15.5); WBC 7.1 k/uL (3.8-10.6)
[2018-10-08 10:02] LABS: INR 2.4 (<1.2); Partial Thromboplastin Time 32.4 sec (22.0-30.0); Prothrombin Time 23.1 sec (9.0-12.0)
[2018-10-08 10:06] LABS: Appearance,Urine Clear (Clear); Bilirubin,Urine Negative (Negative); Blood,Urine Trace (Negative); Color,Urine Yellow; Glucose,Urine (UA) Negative (Negative); Ketones,Urine Negative (Negative); Leukocyte Esterase,Urine Negative (Negative); Nitrite,Urine Negative (Negative); PH, Urine 7.5 (5.0-8.0); Protein,Urine Negative (Negative); RBC,Urine 3 /hpf (0-5); Specific Gravity,Urine 1.011 (1.001-1.035); Squamous Epithelial Cell,Urine 3 /hpf (0-4); Urobilinogen,Urine <2.0 mg/dL (<2.0); WBC,Urine <1 /hpf (0-5)
[2018-10-08 16:53] LABS: African American GFR (CKD) 93.5 (60.0-200.0); Albumin 4.3 g/dL (3.80-4.90); Albumin/Globulin Ratio 1.95 (1.60-3.17); Anion Gap 9.1 mmol/L (4.00-12.00); BUN/Creat Ratio 22.86 Ratio (12.00-20.00); Calcium 10.3 mg/dL (8.7-10.3); Carbon Dioxide 28.9 mmol/L (21.6-31.8); Globulin 2.2 g/dL (1.6-3.3); Potassium 3.8 mmol/L (3.5-5.5); Total Bilirubin 0.8 mg/dL (0.2-1.2); Total Protein 6.5 g/dL (6.2-8.2)
== END | disposition home or self-care (01) ==
LOC: LABWHC1 09:00
PROVIDERS: ATTEND Orthopaedic Surgery
DX: Z01.810 Encounter for preprocedural cardiovascular examination (principal); Z01.812 Encounter for preprocedural laboratory examination
CPT/HCPCS: 36415; 80053; 81001; 85027; 85610; 85730; 87070; 93005

== ENCOUNTER 2018-10-16 06:35 | Inpatient (IN) | payer MEDICARE, BC ==
[~2018-10-16 06:35] MED LIST: ACETAMINOPHEN TAB 500 MG TAB PO ONE; MELOXICAM 7.5 MG TAB PO ONE; MIDAZOLAM 2 MG/2 ML VIAL IV PRN; ONDANSETRON 4 MG/2 ML VIAL IVP ONE; TRANEXAMIC ACID 1,000 MG in SODIUM CHLORIDE 0.9% 100 ML IVPB ONE; ceFAZolin IN SWFI 2 GM/20 ML SYRINGE IVP ONE
[2018-10-16] MEDS: LACTATED RINGERS 1,000 ML IV SCH ×3 (07:15→22:07)
[2018-10-16] MEDS ORDERED: DEXAMETHASONE SOD PHOSPHATE 4 MG/ML 1 ML VIAL IVP ONE (07:19)
[2018-10-16] MEDS ORDERED: LIDOCAINE 1% 20 ML VIAL (10MG/ML) FOR IV START INTRADERMA ONE (07:20)
[2018-10-16 07:42] LABS: Prothrombin Time 10.9 sec (9.0-12.0)
[2018-10-16] MEDS ORDERED: fentaNYL (PF) 50 MCG/ML 2 ML AMP ONE (07:50)
[2018-10-16] MEDS ORDERED: PHENYLEPHRINE-0.9% NACL SYG 1 MG/10 ML SYRINGE ONE (07:50)
[2018-10-16] MEDS ORDERED: PROPOFOL 10 MG/ML 20 ML VIAL IV ONE (07:50)
[2018-10-16] MEDS ORDERED: KETAMINE 10 MG/ML 20 ML VIAL ONE (07:50)
[2018-10-16] MEDS ORDERED: MIDAZOLAM 2 MG/2 ML VIAL ONE (07:50)
[2018-10-16] MEDS ORDERED: TRANEXAMIC ACID 1,000 MG/10 ML VIAL ONE (07:50)
[2018-10-16] MEDS ORDERED: SODIUM CHLORIDE 0.9% 100 ML BAG ONE (07:50)
[2018-10-16] MEDS ORDERED: diphenhydrAMINE 50 MG/ML 1 ML VIAL ONE (07:50)
[2018-10-16] MEDS ORDERED: ROPIVACAINE 246.25 MG, EPINEPHrine 0.5 MG, KETOROLAC 30 MG, cloNIDine HCL/PF 80 MCG, WA... MISCELLANE STA ×5 (07:57)
[2018-10-16] MEDS ORDERED: NALOXONE 0.4 MG/ML 1 ML VIAL IV PRN ×2 (08:01→11:43)
[2018-10-16] MEDS ORDERED: ceFAZolin 3,000 MG in SODIUM CHLORIDE 0.9% IRRIGATIO 3,000 ML IRRIGATION ONE (08:25)
[2018-10-16] MEDS ORDERED: LACTATED RINGERS 1,000 ML IV ONE ×2 (09:52)
--- NOTE | 2018-10-16 10:01 | P.OP ---
Date of Procedure: 10/16/18 Procedure(s) Performed: PREOPERATIVE DIAGNOSIS: Right hip severe osteoarthritis POSTOPERATIVE DIAGNOSIS: Right hip severe osteoarthritis OPERATION: Right hip total replacement arthroplasty (hybrid implantation with ceramic on polyethylene articulation). ANESTHESIA: Spinal ESTIMATED BLOOD LOSS: 225 ml. VARYING EXCEPTIONALITIES TEACHER: none COMPLICATIONS: None apparent. COMPONENTS IMPLANTED: Ilene Continuum 50mm acetabular cup with cluster holes; Continuum longevity 15 elevated liner, 32 mm inner diameter; Ilene VerSys femoral stem; VerSys 32 mm biolox femoral head with 7 mm neck length extension INDICATIONS: Mrs. Marie is an 83 year old female with significant end-stage osteoarthritis involving the right hip and commensurate severe symptoms. She presents to the operating room today for total hip replacement. I have discussed the steps of the operation as well as potential risks and complications as being inclusive of, but not limited to: Leading, infection, scarring, discomfort, or vessel and/or nerve damage, need for further surgery, loosening, dislocation, wear, osteolysis, limb length inequality, fracture, blood clot, pulmonary embolism, , persistent limp, and other risks. The patient is aware of these risks and wishes to proceed with surgery and has signed a consent form. PROCEDURE: After appropriate consent was obtained, the patient was taken to the operating room and placed in supine position. Spinal anesthetic was administered and after confirmation of adequate anesthesia, the patient was placed into the lateral decubitus position with the right side up. Care was taken to make sure that all pressure points were adequately padded and the patient was stabilized to the table with a [place] hip positioner. The right hip was prepped and draped in the usual aseptic fashion using a combination of ChloraPrep and alcohol. [place]oban drape was used for the case and the patient received intravenous antibiotics prior to the incision. Timeout was called, confirming patient identity, side, procedure, availability of implants, and administration of IV antibiotics. The incision was created directly over the greater trochanter and carried slightly posteriorly for a posterior approach to the hip. The incision was then deepened down to subcutaneous tissue and fascia isaiah. Fascia isaiah was split in line with the incision and split proximally along the fibers of the gluteus ila. The underlying fibers of the muscle were teased apart using finger dissection and bleeding vessels were picked up and coagulated. Retractor was then placed posteriorly consisting of a blunt Kajal. The short external rotators and capsule were exposed using good visualization of the attachment of the external rotators to the femur was established. The short external rotators and capsule were released using electrocautery from their femoral attachments. A hockey stick shaped incision was created in the capsule. Joint fluid was evacuated and the patient's hip was able to be dislocated fairly easily. The patient's femoral head was severely arthritic. The femoral neck cut was created approximately 1 cm superior to the lesser trochanter using a reciprocating saw. The femoral head and neck fragment was removed and attention was then directed to the acetabulum. An anterior acetabular retractor was applied followed by posterior retraction of the capsule with a Meyerding retractor. This afforded good visualization into the acetabular cavity. End-stage arthritis was noted. Soft tissue was removed and residual cartilage within the acetabular vault was removed using a curette. Labrum was removed using a long-handled knife. Attention was then directed to reaming. The size 44 reamer was used first, followed by increasing increments until the final size reamer was used. Please see the implantation sheet for exact sizes used for the components. Once the final reamer had been utilized to expand the socket it was noted that there was a good supportive bone around the acetabular socket and no further reaming needed to be performed. The trial the same size as the last reamer used was then impacted into the acetabular vault and found to have good fit. The acetabular size, one size (2mm) greater than the trial was then called for. The cluster holes were placed posteriorly and the component was impacted in a position of approximately 40 degrees abduction and 20 degrees anteversion. This matched this patient's [place] anteversion and it was noted that the cup had good stability, but as an added precaution against loosening one 30 mm 6.5 mm acetabular fully threaded screw was placed posteriosuperiorly into one of the cluster holes. A 15 elevated liner was inserted with the elevation posterior superior. Anesthetic solution consisting of ropivacaine with epinephrine, clonidine, and ketorolac was injected in a grid-type fashion around the anterior capsule, posterior capsule, abductor fascia, fascia isaiah, subcutaneous tissues, and trochanteric bursa. This solution was injected periodically throughout the case depending on the exposure. Attention was then directed back to the proximal femur. Retractors were placed around the proximal femur and box osteotome was used followed by canal finder and trochanteric reamer. Cylindrical reaming was performed. Progressive broaching was then performed starting with a #10 broach and progressing final size, in a position of 10-15 degrees anteversion. [place] anteversion was within 5 degrees of stem position. The final size broach had excellent fit and fill of the patient's metaphysis and diaphysis. Trial reduction was then performed starting with size 32 mm femoral head and various neck combination of stability, limb length equality, and soft tissue tension. Trial components were then removed. Canal plug was inserted, and cement was mixed on the back table and allowed to reach a doughy consistency. The canal was pulse lavaged and brushed with a canal brush. Cement was then inserted retrograde into the canal and pressurized several times with thumb pressurization technique. The femoral stem component was impacted into position. Excess cement was removed. The cement was allowed to harden completely. The implant fit very well and had excellent stability. The femoral head was then impacted onto the [place] taper. Blood and debris were removed from the acetabular component and the hip was then reduced and checked for stability, limb length and soft tissue tension. These parameters found to be satisfactory, the wound was then thoroughly irrigated with normal saline. Final hemostasis was obtained using electrocautery and IV tranexamic acid, 1 g given at the time of prepping and draping, and another 1 g given at the time of closure. Closure of the capsule was performed meticulously using #3 Vicryl suture. Four [id number] sutures were placed in the posterior capsule along with repair of the short external rotators. The fascia isaiah was then repaired using combination of #3 Vicryl suture in interrupted fashion and Quill and running fashion. 2-0 Vicryl suture was used for the subcutaneous tissues and 3-0 Quill for the skin. Dermabond tape was then applied. The patient tolerated the procedure well. There were no complications and the wound bed was dry and there was no need for drain placement. Sterile dressing was then applied and the patient was carefully removed from the operating room table, placed on the stretcher and was taken to the recovery room in stable condition. Sponge and needle counts were correct.
[2018-10-16] MEDS: HYDROmorphone 0.5 MG/0.5 ML SYRINGE IVP PRN ×2 (10:52→11:33)
[2018-10-16] MEDS ORDERED: HYDROcodone/APAP 5-325MG 1 EACH TAB PO PRN (11:20)
[2018-10-16] MEDS ORDERED: traMADol 50 MG TAB PO PRN (11:20)
[2018-10-16] MEDS ORDERED: ONDANSETRON 4 MG/2 ML VIAL IVP PRN (11:20)
[2018-10-16] MEDS ORDERED: MORPHINE SULFATE 2 MG/ML SYRINGE IV PRN ×3 (11:20)
--- NOTE | 2018-10-16 11:33 | XR ---
EXAMINATION TYPE: XR Hip Limited RT DATE OF EXAM: 10/16/2018 COMPARISON: NONE HISTORY: Pain TECHNIQUE: One view submitted. FINDINGS: There is postsurgical change in near anatomic alignment. There is soft tissue edema and emphysema. IMPRESSION: 1. Postoperative change. Appears in near-anatomic alignment.
[2018-10-16] MEDS ORDERED: HYDROmorphone 0.5 MG/0.5 ML SYRINGE IVP PRN ×3 (11:43)
[2018-10-16] MEDS ORDERED: TEMAZEPAM 15 MG CAP PO PRN (11:43)
[2018-10-16] MEDS ORDERED: MAGNESIUM HYDROXIDE 2,400 MG/10 ML CUP PO PRN (11:43)
[2018-10-16] MEDS: HYDROcodone/APAP 5-325MG 1 EACH TAB PO PRN ×2 (13:44→19:11)
[2018-10-16 15:52] VITALS: BMI 28.2
[2018-10-16] MEDS: MULTIVITAMINS, THERA 1 EACH TAB PO SCH (17:53)
[2018-10-16] MEDS: ceFAZolin IN SWFI 2 GM/20 ML SYRINGE IVP SCH ×2 (18:11→23:29)
[2018-10-16] MEDS ORDERED: SENNOSIDES-DOCUSATE SODIUM 1 EACH TAB PO SCH (21:00)
[2018-10-16] MEDS ORDERED: LISINOPRIL 20 MG TAB PO SCH (21:00)
[2018-10-16] MEDS ORDERED: amLODIPine 5 MG TAB PO SCH (21:00)
[2018-10-16] MEDS ORDERED: METOPROLOL TARTRATE 25 MG TAB PO SCH (21:00)
[2018-10-16] MEDS ORDERED: SODIUM CHLORIDE 0.9% 500 ML 500 ML IV ONE (22:19)
--- NOTE | 2018-10-17 00:29 | CONS ---
CONSULTATION REASON FOR CONSULTATION: Advice regarding hypertension, hyperlipidemia, requested by Dr. Johnson. HISTORY OF PRESENT ILLNESS: This 83-year-old woman with past medical history of atrial ablation, hypertension, DJD, history of hypothyroidism, being followed by Dr. Mujica in the outpatient setting was admitted after right hip total arthroplasty by Dr. Johnson. The patient being closely monitored. There is no history of chest pain. No history of palpitations. No history of shortness of breath, hematochezia or melena at this time. PAST MEDICAL HISTORY: Atrial fibrillation, hypertension, hyperlipidemia, DJD, history of hypothyroidism. MEDICATIONS: Prior to admission include home medications are: 1. Amlodipine 5 mg p.o. b.i.d. 2. Coumadin 5 mg p.o. daily. 3. Pravachol 20 mg b.i.d. 4. Lopressor 50 mg q.a.m. and 25 mg q.h.s. 5. Prinivil 20 mg b.i.d. 6. Synthroid 25 mcg p.o. q.a.m. 7. Hydrochlorothiazide 25 mcg mg p.o. daily. 8. Calcium with vitamin D 1 p.o. daily. 9. Senokot-S 1 tablet p.o. b.i.d. 10.Xarelto 10 mg p.o. daily. 11.Liberty 5 mg 1-2 tablets q.4h 6 p.r.n. 12.Aspirin 81 mg p.o. daily. ALLERGIES: NARCOTICS. FAMILY HISTORY: History of myocardial infarction in the family. SOCIAL HISTORY: No history of smoking. Occasional alcohol intake. REVIEW OF SYSTEMS: ENT: No diminished vision. No diminished hearing. CARDIOVASCULAR: No angina or palpitations. RESPIRATION: No cough. No hemoptysis. GI no nausea or vomiting. : No dysuria. NERVOUS SYSTEM: No numbness or weakness. ALLERGY/IMMUNOLOGY: No asthma or hayfever. MUSCULOSKELETAL as mentioned earlier. HEMATOLOGY/ONCOLOGY: No history of anemia. ENDOCRINE: Hypothyroid. CONSTITUTIONAL: As mentioned earlier. DERMATOLOGY: Negative. RHEUMATOLOGY: Negative. PSYCHIATRY: As mentioned earlier. PHYSICAL EXAMINATION: Alert and oriented times three. Pulse is 72, blood pressure 100/67, respiration 20, temperature normal. Pulse ox 94% on 2 L. HEENT: Conjunctivae normal. Oral mucosa moist. NECK is no jugular venous distention. No carotid bruit. No lymph node enlargement. CARDIOVASCULAR: S1, S2 muffled. RESPIRATORY: Breath sounds diminished in the bases. A few scattered rhonchi. No crackles. ABDOMEN: Soft, nontender. LEGS: Status post arthroplasty. NERVOUS SYSTEM: No focal deficits. LABS: At this time PT/INR is normal and the most recent hematology is normal. Coags are also normal. Chemistry shows glucose 127, otherwise within normal limits. LDL is 140. ASSESSMENT: 1. Status post right total hip joint arthroplasty for severe degenerative joint disease. 2. Atrial fibrillation history. 3. Hypertension. 4. Hyperlipidemia. 5. History of degenerative joint disease. 6. Hypothyroidism. 7. History of bradycardia. 8. Pacemaker. 9. History of gastrointestinal bleed. 10.History of nephrolithiasis. 11.History of cardiac catheterization. 12.History of lithotripsy. 13.FULL CODE. RECOMMENDATIONS AND DISCUSSION: This 83-year-old woman with a past medical history of multiple medical problems, at this time, I recommend to continue current medications. Continue to monitor. Symptomatic treatment. Otherwise, at this time, I recommend resume the home medications, beta blockers. Closely follow. DVT prophylaxis. We will follow the patient closely. Patient may be asked to follow up with Dr. Mujica closely after discharge. Thank you Dr. Johnson for letting us participate in the care of this patient. MMDILCIAL / IJN: [id number] /
[2018-10-17] MEDS: LACTATED RINGERS 1,000 ML IV SCH ×3 (04:29→10:14)
[2018-10-17] MEDS ORDERED: LEVOTHYROXINE 25 MCG TAB PO SCH (06:30)
[2018-10-17] MEDS: HYDROcodone/APAP 5-325MG 1 EACH TAB PO PRN (06:52)
[2018-10-17 07:14] VITALS: BP 125/56; PULSE 80; RESP 19; TEMP 97.9
[2018-10-17 08:11] LABS: Basophils % (A) 0 %; Eosinophils % (A) 0 %; HCT 32.4 % (34.0-46.0); HGB 10.7 gm/dL (11.4-16.0); Lymphocytes # (A) 1.4 k/uL (1.0-4.8); Lymphocytes % (A) 10 %; MCH 32.1 pg (25.0-35.0); MCV 97.4 fL (80.0-100.0); Mean Platelet Volume 6.8; Monocytes # (A) 0.8 k/uL (0-1.0); Monocytes % (A) 6 %; Neutrophils % (A) 84 %; Platelet Count 271 k/uL (150-450); RBC 3.32 m/uL (3.80-5.40); RDW 13.3 % (11.5-15.5); WBC 14.4 k/uL (3.8-10.6)
[2018-10-17] MEDS ORDERED: METOPROLOL TARTRATE 50 MG TAB PO SCH (09:00)
[2018-10-17] MEDS ORDERED: MELOXICAM 7.5 MG TAB PO SCH (09:00)
[2018-10-17] MEDS ORDERED: HYDROCHLOROTHIAZIDE 25 MG TAB PO SCH (09:00)
[2018-10-17] MEDS ORDERED: PRAVASTATIN SODIUM 20 MG TAB PO SCH (09:00)
[2018-10-17] MEDS ORDERED: RIVAROXABAN 10 MG TAB PO SCH (09:00)
[2018-10-17] MEDS: MULTIVITAMINS, THERA 1 EACH TAB PO SCH (09:51)
[2018-10-17] MEDS ORDERED: WARFARIN 5 MG TAB PO ONE (10:15)
--- NOTE | 2018-10-17 11:07 | P.DS ---
Providers Date of admission: 10/16/18 06:35 Expected date of discharge: 10/17/18 Attending physician: Jeet Johnson Consults: 10/16/18 11:53 Consult Physician Urgent Consulting Provider: Yulisa Hunter Consult Reason/Comments: Medical management Do you want consulting provider notified?: Yes Primary care physician: Mil Mujica - Discharge Diagnosis(es) (1) Osteoarthritis of right hip Current Visit: Yes Status: Acute (2) Right hip pain Current Visit: Yes Status: Acute (3) History of atrial fibrillation Current Visit: Yes Status: Acute (4) History of hypertension Current Visit: Yes Status: Acute (5) History of hyperlipidemia Current Visit: Yes Status: Acute (6) History of hypothyroidism Current Visit: Yes Status: Acute Hospital Course: This is a pleasant 83-year-old female who presented with severe right hip osteoarthritis who failed outpatient conservative therapy. She was admitted for a right total hip arthroplasty. The patient tolerated the procedure well and did well postoperatively. She feels her pain has been well-controlled. She is able to ambulate without significant difficulty. She feels she is ready for discharge today. Condition on day of discharge stable. Patient will be discharged home. Prescriptions have been written, signed, and provided to pharmacy and have already been picked up by the patient's family. Patient was cleared preoperatively for surgery by Dr. Mujica. Patient currently denies any nausea, vomiting, fever, or chills. Patient is eating and voiding freely without difficulty. Dressing over the right hip is clean, dry, and intact. We discussed patient may shower without a dressing intact incision stays dry the next 48 hours. She may weight-bear as tolerated with assistance of a walker. Patient should refrain from driving until at least after their first follow-up appointment in the office. 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 Salazar. MAPS was previously reviewed by Maia Maloney PA-C. Patient will take Bushnell 5 mg/325 mg 1-2 tabs every 4 - 6 hours as needed for pain, dispensed #50. Patient has a medical history which includes atrial fibrillation, hypertension, hyperlipidemia, and hypothyroidism. Patient has been seen and examined by Dr. Hunter and medicine. Physical Exam Total Hip Arthroplasty: Status post surgical day number 1 Patient is examined lying in bed Patient is awake and alert, and oriented 3 Vital signs stable Good chest excursion with deep inspiration and expiration Abdomen soft nontender No signs or symptoms of DVT; no calf pain Lower extremity cuffs in place bilaterally Dressing of the right hip is clean, dry, and intact; no erythema, purulence, or signs of infection Full range of motion of ankles bilaterally Dorsiflexion, plantarflexion, and extensor hallucis longus positive sustained bilaterally Neurovascularly intact bilateral lower extremities Capillary refill less than 2 seconds bilateral lower extremities Procedures: Right hip total arthroplasty Patient Condition at Discharge: Stable Plan - Discharge Summary Discharge Rx Participant: Yes New Discharge Prescriptions: New Aspirin [Adult Low Dose Aspirin EC] 81 mg PO DAILY #1 tablet. HYDROcodone/APAP 5-325MG [Bushnell 5-325] 1 - 2 each PO Q4-6H PRN #50 tab PRN Reason: Pain Sennosides-Docusate Sodium [Senokot-S] 1 tab PO BID #60 tablet Rivaroxaban [Xarelto] 10 mg PO DAILY #5 tab No Action amLODIPine 5 mg PO BID Lisinopril [Prinivil] 20 mg PO BID Levothyroxine Sodium [Synthroid] 25 mcg PO QAM Metoprolol Tartrate [Lopressor] 25 mg PO HS Pravastatin Sodium [Pravachol] 20 mg PO DAILY Hydrochlorothiazide 25 mg PO DAILY Calcium Carbonate/Vitamin D3 [Calcium 600-Vit D3 400 Tablet] 1 tab PO DAILY Warfarin [Coumadin] 5 mg PO DAILY Metoprolol Tartrate [Lopressor] 50 mg PO QAM Discharge Medication List Levothyroxine Sodium [Synthroid] 25 mcg PO QAM 12/13/13 [History] Lisinopril [Prinivil] 20 mg PO BID 12/13/13 [History] Metoprolol Tartrate [Lopressor] 25 mg PO HS 12/13/13 [History] amLODIPine 5 mg PO BID 12/13/13 [History] Calcium Carbonate/Vitamin D3 [Calcium 600-Vit D3 400 Tablet] 1 tab PO DAILY 08/05/14 [History] Hydrochlorothiazide 25 mg PO DAILY 08/05/14 [History] Pravastatin Sodium [Pravachol] 20 mg PO DAILY 08/05/14 [History] Warfarin [Coumadin] 5 mg PO DAILY 08/24/18 [History] Metoprolol Tartrate [Lopressor] 50 mg PO QAM 10/12/18 [History] Aspirin [Adult Low Dose Aspirin EC] 81 mg PO DAILY #1 tablet. 10/16/18 [Rx] HYDROcodone/APAP 5-325MG [Bushnell 5-325] 1 - 2 each PO Q4-6H PRN #50 tab 10/16/18 [Rx] Rivaroxaban [Xarelto] 10 mg PO DAILY #5 tab 10/16/18 [Rx] Sennosides-Docusate Sodium [Senokot-S] 1 tab PO BID #60 tablet 10/16/18 [Rx] Follow up Appointment(s)/Referral(s): Maia Maloney, BAL [PHYSICIAN MOMD TEACHER] - 2 Weeks [facility], [NON-STAFF] - Patient Instructions/Handouts: Precautions after Total Joint Replacement Surgery (DC), Total Hip Replacement (DC) Activity/Diet/Wound Care/Special Instructions: May bear weight as tolerated with walker. May shower if no drainage from incision after 48h post op. Discharge Disposition: HOME WITH HOME HEALTH SERVICES
[2018-10-17] MEDS ORDERED: CALCIUM CARB-VIT D 500MG-200UN 1 EACH TAB PO SCH (12:00)
--- NOTE | 2018-10-17 17:48 | PN ---
PROGRESS NOTE DATE OF SERVICE: 10/17/2018 This 83-year-old woman was admitted after hip surgery is improving significantly. No chest pain. No palpitations. No fever. EXAM: Alert and oriented x3. Pulse is 80, blood pressure 125/56, respiration 18, temperature 97.8, pulse ox 93 percent on room air. HEENT: Conjunctivae normal. NECK: No jugular venous distention. CARDIOVASCULAR: S1, S2 muffled. RESPIRATION: Breath sounds diminished in the bases. No rhonchi. No crackles. ABDOMEN: Soft. LEGS: Status post hip arthroplasty. NERVOUS system: No focal deficits. LABS: WBC 14.2, hemoglobin 10.7. ASSESSMENT: 1. Status post right total hip joint arthroplasty for severe degenerative joint disease. 2. Atrial fibrillation history. 3. Hypertension. 4. Hyperlipidemia. 5. History of degenerative joint disease. 6. History of hypothyroidism. 7. History of bradycardia. 8. History of pacemaker. 9. History of gastrointestinal bleed. 10.History of nephrolithiasis. 11.History of cardiac catheterization. 12.History of lithotripsy. 13.FULL CODE. RECOMMENDATIONS AND DISCUSSION: I recommend to continue current medications, monitoring, management and symptomatic treatment. Otherwise, at this time, I recommend incentive spirometry. Resume the home medications. Follow with primary physician in the outpatient setting in 2-3 weeks. Further recommendations to follow. MMDILCIAL / JAYLINN: [id number] /
[2018-10-18] MEDS ORDERED: WARFARIN 5 MG TAB PO SCH (18:00)
== END 2018-10-17 11:42 | disposition home health service (06) | DRG 470 ==
LOC: 2ORMAIN 06:35 → 4SSUR 10:24
PROVIDERS: ADMIT Orthopaedic Surgery; ATTEND Orthopaedic Surgery
PROC: 0SR9049 Replacement of Right Hip Joint with Ceramic on Polyethylene Synthetic Substitute, Cemented, Open Approach (ICD-10-PCS; principal; 2018-10-16 07:30)
DX: M16.11 Unilateral primary osteoarthritis, right hip (principal); I44.2 Atrioventricular block, complete; I48.0 Paroxysmal atrial fibrillation; I34.0 Nonrheumatic mitral (valve) insufficiency; E03.9 Hypothyroidism, unspecified; E78.00 Pure hypercholesterolemia, unspecified; E78.5 Hyperlipidemia, unspecified; I10 Essential (primary) hypertension; H91.90 Unspecified hearing loss, unspecified ear; Z79.01 Long term (current) use of anticoagulants; Z79.890 Hormone replacement therapy; Z79.899 Other long term (current) drug therapy; Z87.19 Personal history of other diseases of the digestive system; Z87.442 Personal history of urinary calculi; Z95.0 Presence of cardiac pacemaker; Z98.890 Other specified postprocedural states; Z98.51 Tubal ligation status; Z88.5 Allergy status to narcotic agent; Z82.49 Family history of ischemic heart disease and other diseases of the circulatory system
CPT/HCPCS: 36415; 73501; 85025; 85610; 86850; 86900; 86901; 88300

== ENCOUNTER → 2018-12-29 | Outpatient (CLI) | payer MEDICARE, BC ==
--- NOTE | 2018-12-30 09:50 | MM ---
Reason for exam: screening (asymptomatic). Last mammogram was performed 1 year and 2 months ago. History: Patient is postmenopausal. Family history of premenopausal breast cancer in grandmother at age 27. Benign right mammotome panel of the right breast, February 06, 2005. Benign right mammotome panel of the right breast, February 06, 2005. Benign excisional biopsy of the left breast, October 15, 2001. Benign stereotactic core biopsy of the left breast, January 22, 2001. Benign core biopsy of the left breast. Benign excisional biopsy of the left breast. Physical Findings: A clinical breast exam by your physician is recommended on an annual basis and results should be correlated with mammographic findings. MG 3D Screening Mammo W/Cad Bilateral CC and MLO view(s) were taken. Prior study comparison: October 28, 2017, bilateral MG 3d screening mammo w/cad. August 29, 2016, bilateral MG 3d screening mammo w/cad. The breast tissue is heterogeneously dense. This may lower the sensitivity of mammography. There is a stable right lower inner quadrant mass at anterior depth. Benign appearing bilateral calcifications. No suspicious abnormality. Right biopsy marker. Left cardiac device. No significant changes when compared with prior studies. ASSESSMENT: Benign, BI-RAD 2 RECOMMENDATION: Routine screening mammogram of both breasts in 1 year.
== END ==
LOC: RADMAMWWP 09:16
PROVIDERS: ATTEND Family Medicine
DX: Z12.31 Encounter for screening mammogram for malignant neoplasm of breast (principal)
CPT/HCPCS: 77063; 77067

== ENCOUNTER → 2019-05-27 | Outpatient (CLI) | payer MEDICARE, BC ==
--- NOTE | 2019-05-27 09:24 | CT ---
EXAMINATION TYPE: CT soft tissue neck wo con DATE OF EXAM: 05/27/2019 HISTORY: cervicalgia per order. Neck pain for 2 weeks. COMPARISON: CT neck May 13, 2013 CT DLP: 305.3 mGycm. Automated Exposure Control for Dose Reduction was Utilized. TECHNIQUE: CT scan of the neck is performed without IV contrast, axial images are obtained, coronal and sagittal reformatted images are reviewed. FINDINGS: Lack of IV contrast is noted lower sensitivity for evaluation for mucosal masses and for ne ck adenopathy. Airway: No gross abnormality seen. Parotid/submandibular glands: No gross abnormality seen. Carotid/Vascular Structures: No significant calcified plaque carotid bulb level bilaterally. Osseous Structures: There is persistent straightening of cervical spine with grade 1 retrolisthesis o f C5 on C6 and to lesser degree C6 on C7. There is persistent grade 1 anterolisthesis of C7 on T1. [place] images redemonstrate levoconvex scoliosis centered lower cervical spine. There is persistent se erwin disc space narrowing with moderate to severe spurring and endplate sclerosis right C5-C6 level w ith some progression from 2014 study. Moderate disc space narrowing and mild spurring C6-C7 level gre ater on the right side is redemonstrated. Review of axial images redemonstrate multilevel uncovertebral facet degenerative changes contributing to multilevel neural foraminal narrowing findings greatest at left C3-C4 level axial image 52, left C4-C5 level with additional marginal spurring axial image 47 and right C5-C6 level axial image 41 wit h progression at this level noted from prior. Axial images also show persistent central spur disc com plex effacing the anterior thecal sac axial image 40 causing some flattening of ventral surface of sp inal cord similar to prior. Other: Current study shows partial visualization of new left-sided pacemaker. Scleral calcification l eft globe is present. IMPRESSION: Multilevel spondylolisthesis and progression in degenerative changes greatest at C5-C6 le real as detailed above.
== END | disposition home or self-care (01) ==
LOC: RADCTMAIN 06:48
PROVIDERS: ATTEND Physician Assistant
DX: M43.12 Spondylolisthesis, cervical region (principal); M47.812 Spondylosis without myelopathy or radiculopathy, cervical region
CPT/HCPCS: 70490

== ENCOUNTER → 2019-07-05 | Outpatient (CLI) | payer MEDICARE, BC ==
[2019-07-05 10:31] LABS: INR 1.1 (<1.2); Prothrombin Time 10.9 sec (9.0-12.0)
== END | disposition home or self-care (01) ==
LOC: LABWHC1 09:09
PROVIDERS: ATTEND Physical Medicine & Rehabilitation
DX: M47.22 Other spondylosis with radiculopathy, cervical region (principal); M48.062 Spinal stenosis, lumbar region with neurogenic claudication; M43.16 Spondylolisthesis, lumbar region; M47.817 Spondylosis without myelopathy or radiculopathy, lumbosacral region; M41.26 Other idiopathic scoliosis, lumbar region; Z95.0 Presence of cardiac pacemaker; Z79.01 Long term (current) use of anticoagulants
CPT/HCPCS: 36415; 85610; 85730

== ENCOUNTER → 2019-10-06 | Outpatient (CLI) | payer MEDICARE, BC ==
[2019-10-06 09:46] LABS: INR 1.1 (<1.2); Partial Thromboplastin Time 24.2 sec (22.0-30.0); Prothrombin Time 11.6 sec (9.0-12.0)
== END | disposition home or self-care (01) ==
LOC: LABWHC1 08:17
PROVIDERS: ATTEND Physical Medicine & Rehabilitation
DX: M48.062 Spinal stenosis, lumbar region with neurogenic claudication (principal); M43.16 Spondylolisthesis, lumbar region; M47.812 Spondylosis without myelopathy or radiculopathy, cervical region; M47.817 Spondylosis without myelopathy or radiculopathy, lumbosacral region; M41.26 Other idiopathic scoliosis, lumbar region; Z79.01 Long term (current) use of anticoagulants
CPT/HCPCS: 36415; 85610; 85730

== ENCOUNTER → 2019-11-16 | Outpatient (CLI) | payer MEDICARE, BC ==
[2019-11-16 11:02] LABS: Partial Thromboplastin Time 23.5 sec (22.0-30.0); Prothrombin Time 10.4 sec (9.0-12.0)
== END | disposition home or self-care (01) ==
LOC: LABWHC1 08:39
PROVIDERS: ATTEND Physical Medicine & Rehabilitation
DX: Z51.81 Encounter for therapeutic drug level monitoring (principal); Z79.01 Long term (current) use of anticoagulants; Z95.0 Presence of cardiac pacemaker
CPT/HCPCS: 36415; 85610; 85730

== ENCOUNTER → 2020-05-16 | Outpatient (CLI) | payer MEDICARE, BC ==
--- NOTE | 2020-05-17 11:05 | MM ---
Reason for exam: screening (asymptomatic). Last mammogram was performed 1 year and 5 months ago. History: Patient is postmenopausal. Family history of premenopausal breast cancer in grandmother at age 27. Benign right mammotome panel of the right breast, February 06, 2005. Benign right mammotome panel of the right breast, February 06, 2005. Benign excisional biopsy of the left breast, October 15, 2001. Benign stereotactic core biopsy of the left breast, January 22, 2001. Benign core biopsy of the left breast. Benign excisional biopsy of the left breast. Physical Findings: A clinical breast exam by your physician is recommended on an annual basis and results should be correlated with mammographic findings. MG 3D Screening Mammo W/Cad Bilateral CC and MLO view(s) were taken. Prior study comparison: December 29, 2018, bilateral MG 3d screening mammo w/cad. October 28, 2017, bilateral MG 3d screening mammo w/cad. The breast tissue is heterogeneously dense. This may lower the sensitivity of mammography. There are benign appearing round calcifications bilaterally. No significant changes when compared with prior studies. ASSESSMENT: Benign, BI-RAD 2 RECOMMENDATION: Routine screening mammogram of both breasts in 1 year.
== END | disposition home or self-care (01) ==
LOC: RADMAMWWP 13:37
PROVIDERS: ATTEND Family Medicine
DX: Z12.31 Encounter for screening mammogram for malignant neoplasm of breast (principal)
CPT/HCPCS: 77063; 77067

== ENCOUNTER → 2021-05-21 | Outpatient (CLI) | payer MEDICARE, BC ==
--- NOTE | 2021-05-21 12:53 | CT ---
EXAMINATION TYPE: CT foot RT wo con DATE OF EXAM: 05/21/2021 COMPARISON: No radiographic correlation available HISTORY: 85-year-old female S92.024A FX OF ANTERIOR PROCESS OF RIGHT CALCANEUS. TECHNIQUE: Contiguous axial scanning of the right foot without IV contrast. Coronal and sagittal camila nstructions performed. 3-D reconstructions generated on a dedicated independent workstation. CT DLP: 191 mGycm Automated exposure control for dose reduction was used. FINDINGS: Generalized osteopenia. Soft tissue swelling about the ankle. Tiny os peroneum noted. Tiny 2 mm loose body inferior to the head of the talus, axial image 23 and sagittal image 42. Donor s ite not clearly identified. Degenerative joint space narrowing with subchondral cystic change at the second and third TMT and int ermetatarsal joints. Bunionette is noted. Mild degenerative spurring at the navicular cuneiform joint laterally. Moderate effusion posterior tibiotalar and subtalar joints. Achilles tendon smoothly delineated. Small plantar heel spur. IMPRESSION: 1. GENERALIZED OSTEOPENIA AND SOFT TISSUE SWELLING ABOUT THE ANKLE. UNDERLYING POSTERIOR TIBIOTALAR A ND SUBTALAR JOINT EFFUSION. 2. TINY 2 MM LOOSE BODY INFERIOR TO THE HEAD OF THE TALUS. DONOR SITE NOT CLEARLY IDENTIFIED. A TINY, AGE INDETERMINATE AVULSION FRAGMENT SUCH RELATING TO THE IPL OF THE SPRING LIGAMENT COMPLEX OR A TINY CHIP FRACTURE ARE POSSIBILITIES. NO DISPLACED FRACTURE OTHERWISE SEEN. 3. MODERATE MIDFOOT OA ESPECIALLY AT THE SECOND AND THIRD TMT AND INTERMETATARSAL JOINTS.
== END | disposition home or self-care (01) ==
LOC: RADCTMAIN 11:07
PROVIDERS: ATTEND Orthopaedic Surgery
DX: M19.071 Primary osteoarthritis, right ankle and foot (principal); M24.071 Loose body in right ankle; M85.871 Other specified disorders of bone density and structure, right ankle and foot

== ENCOUNTER → 2021-10-10 | Outpatient (CLI) | payer MEDICARE, BC ==
--- NOTE | 2021-10-11 11:30 | MM ---
Reason for Exam: Screening (asymptomatic). Last mammogram was performed 1 year(s) and 5 month(s) ago. Patient History: Menarche at age 12. First Full-Term at age 21. Postmenopausal. Benign Core Biopsy on the left side. Benign Excisional Biopsy on the left side. 02/06/2005, Benign Core Biopsy on the right side. 02/06/2005, Benign Core Biopsy on the right side. 10/15/2001, Benign Excisional Biopsy on the left side. 01/22/2001, Benign Stereotactic Core Biopsy on the left side. Maternal grandmother had breast cancer, age 27. Risk Values: Cassy 5 year model risk: 1.9%. NCI Lifetime model risk: 1.9%. Prior Study Comparison: 10/28/2017 Bilateral Screening Mammogram, [facility]. 12/29/2018 Bilateral Screening Mammogram, [facility]. 05/16/2020 Bilateral Screening Mammogram, [facility]. Tissue Density: The breast tissue is heterogeneously dense. This may lower the sensitivity of mammography. Findings: Analyzed By CAD. There are innumerable benign-appearing round calcifications scattered throughout both breasts redemonstrated. Benign-appearing vascular calcification is also again seen. There is chronic nodularity in the anterior right breast that appears stable. There are at least 2 biopsy clips in the right breast redemonstrated. Left axillary pacemaker device again seen. There is no suspicious group of microcalcifications or new suspicious mass in either breast. Overall Assessment: Benign, BI-RAD 2 Management: Screening Mammogram of both breasts in 1 year. A clinical breast exam by your physician is recommended on an annual basis and results should be correlated with mammographic findings. Electronically signed and approved by: Dev Escobar M.D.
== END | disposition home or self-care (01) ==
LOC: RADMAMWWP 08:16
PROVIDERS: ATTEND Family Medicine
DX: Z12.31 Encounter for screening mammogram for malignant neoplasm of breast (principal); Z78.0 Asymptomatic menopausal state; Z80.3 Family history of malignant neoplasm of breast
CPT/HCPCS: 77063; 77067

== ENCOUNTER → 2022-04-11 | Outpatient (CLI) | payer MEDICARE, BC ==
--- NOTE | 2022-04-12 15:06 | BD ---
EXAMINATION TYPE: Axial Bone Density DATE OF EXAM: 04/11/2022 COMPARISON: 06-30-12 CLINICAL HISTORY: 86 years year old Female. ICD-10 CODE: Z78.0 ASYMPTOMATIC MENOPAUSAL STATE Height: 62IN Weight: 164LB FRAX RISK QUESTIONS: Secondary Osteoporosis: RISK FACTORS HISTORY OF: Surgery to Hip(right): YES RTHA When: 2019 Family History of Osteoporosis: NO Active: YES Postmenopausal woman: YES Lost more than 2 inches in height since high school: YES MEDICATIONS: Thyroid Medications: Which medication: Levothyroxine How Lon YEARS Additional Medications: BP MED, CHOLESTEROL MED, REFLUX MED, CALCIUM WITH VITAMIN D Additional History: EXAM MEASUREMENTS: Bone mineral densitometry was performed using the [email or web address] System. Bone mineral density as measured about the Lumbar spine is: ----- L1-L4(G/cm2): 1.325 T Score Values are as follows: ----- L1: 1.9 ----- L2: 1.1 ----- L3: 1.1 ----- L4: 0.6 ----- L1-L4: 1.2 Bone mineral density has: Decreased -5.0% since study of: 06-30-12 Bone mineral density about the L hip (g/cm2): 0.833 T Score values are as follows: -----L Neck: -1.4 -----L Total: -1.4 Bone mineral density has: Decreased -9.7% since study of: 06-30-12 FRAX%s: The graph provided illustrates a 12.7% chance for a major osteoporotic fx and a 3.3% chance f or the hips probability for fx in 10 years time. IMPRESSION: Osteopenia (T Score between -2.5 and -1). There is slightly increased risk of fracture and the patient may be considered for treatment. Re-Screen 2-5 years. NOTE: T-SCORE=SD OF THE YOUNG ADULT MEAN.
== END | disposition home or self-care (01) ==
LOC: RADBDWWP 10:19
PROVIDERS: ATTEND Family Medicine
DX: Z13.820 Encounter for screening for osteoporosis (principal); M85.89 Other specified disorders of bone density and structure, multiple sites; Z78.0 Asymptomatic menopausal state
CPT/HCPCS: 77080

== ENCOUNTER → 2022-10-11 | Outpatient (CLI) | payer MEDICARE, BC ==
--- NOTE | 2022-10-14 07:43 | MM ---
Reason for Exam: Screening (asymptomatic). Last screening mammogram was performed 12 month(s) ago. Patient History: Menarche at age 12. First Full-Term at age 21. Postmenopausal. Benign Core Biopsy on the left side. Benign Excisional Biopsy on the left side. 02/06/2005, Benign Core Biopsy on the right side. 02/06/2005, Benign Core Biopsy on the right side. 10/15/2001, Benign Excisional Biopsy on the left side. 01/22/2001, Benign Stereotactic Core Biopsy on the left side. Maternal grandmother had breast cancer, age 27. Prior Study Comparison: 12/29/2018 Bilateral Screening Mammogram, [facility]. 05/16/2020 Bilateral Screening Mammogram, [facility]. 10/10/2021 Bilateral MG 3D screening mammo w/cad, [facility]. Tissue Density: The breast tissue is heterogeneously dense. This may lower the sensitivity of mammography. Findings: Analyzed By CAD. Scattered calcifications which appear benign bilaterally. There is no suspicious group of microcalcifications or new suspicious mass in either breast. Overall Assessment: Benign, BI-RAD 2 Management: Screening Mammogram of both breasts in [address] [facility] will attempt to contact patient to return for supplemental views and ultrasound if indicated. Patient should continue monthly self-breast exams. A clinical breast exam by your physician is recommended on an annual basis. This exam should not preclude additional follow-up of suspicious palpable abnormalities. Note on Cassy scores and lifetime risk: 1. A Cassy score greater than 3% is considered moderate risk. If this is the case, consider specialist referral to assess eligibility for a risk reducing agent. 2. If overall lifetime risk for the development of breast cancer is 20% or higher, the patient may qualify for future screening with alternating mammogram and breast MRI. Electronically signed and approved by: Gagandeep Horner DO
== END | disposition home or self-care (01) ==
LOC: RADMAMWWP 09:15
PROVIDERS: ATTEND Family Medicine
DX: Z12.31 Encounter for screening mammogram for malignant neoplasm of breast (principal); Z78.0 Asymptomatic menopausal state; Z80.3 Family history of malignant neoplasm of breast
CPT/HCPCS: 77063; 77067

== ENCOUNTER → 2023-07-17 | Outpatient (CLI) | payer MEDICARE, BC ==
--- NOTE | 2023-07-18 08:47 | CT ---
EXAMINATION TYPE: CT lumbar spine wo con DATE OF EXAM: 07/17/2023 1:11 PM COMPARISON: 01/17/2018 HISTORY: Left side hip pain. CT DLP: 591.5 mGycm Automated exposure control for dose reduction was used. Unenhanced CT of the lumbar spine was performed. Bone and soft tissue window settings are submitted as well as coronal and sagittal reconstructions. Findings: The lumbar vertebral segments are normal in height and there is no fracture. There is a slight grade 1 anterolisthesis of L4 on L5 and of L5 on S1.. There is moderate to marked degenerative disc disease T12/L1, L1/L2, L2/L3, and L5-S1 levels where th ere is marked disc space narrowing, vacuum phenomena, hypertrophic spurring and scattered discogenic endplate changes. There is mild to moderate degenerative disease at the L3-4 and L4-5 levels where th ere is mild to moderate disc space narrowing and mild spondylosis. There is marked osteoarthrosis of the facet joints at the L2-3, L3-4, L4-5 and L5-S1 levels. Sacrum is intact. There is mild degeneration of the SI joints bilaterally. Secondary to the listhesis, and marked facet arthropathy there is a moderate spinal stenosis at the L 4-5 level. There is no bony encroachment of the neural foramina on the left. There is moderate bony encroachment of the L3-4 neuroforamina on the right. There are no large disc herniations. Comparison to the prior study reveals no significant interval change in the moderate spinal stenosis at the L4-5 level or in the facet arthropathy but there has been significant worsening in the degener ative disc disease throughout the lumbar region. IMPRESSION: 1. Moderate to severe multilevel degenerative disease which has progressed significantly in the inter shanti. 2. Stable moderate L4-5 spinal stenosis. 3. grade 1 anterolisthesis of L4 on L5 and of L5 on S1 unchanged compared to previous. 4. Stable moderate bony encroachment of the L3-4 neural foramina on the right. 5. No large disc herniations.
== END | disposition home or self-care (01) ==
LOC: RADCTMAIN 12:48
PROVIDERS: ATTEND Physical Medicine & Rehabilitation
DX: M47.817 Spondylosis without myelopathy or radiculopathy, lumbosacral region (principal); M48.062 Spinal stenosis, lumbar region with neurogenic claudication; M43.17 Spondylolisthesis, lumbosacral region; M41.26 Other idiopathic scoliosis, lumbar region; M25.552 Pain in left hip; Z79.01 Long term (current) use of anticoagulants
CPT/HCPCS: 72131

== ENCOUNTER → 2024-05-07 | Outpatient (CLI) | payer MEDICARE, BC ==
--- NOTE | 2024-05-07 14:26 | MM ---
Reason for Exam: Screening (asymptomatic). Last mammogram was performed 1 year(s) and 7 month(s) ago. Patient History: Menarche at age 12. First Full-Term at age 21. Postmenopausal. Benign Core Biopsy on the left side. Benign Excisional Biopsy on the left side. 02/06/2005, Benign Core Biopsy on the right side. 02/06/2005, Benign Core Biopsy on the right side. 10/15/2001, Benign Excisional Biopsy on the left side. 01/22/2001, Benign Stereotactic Core Biopsy on the left side. Maternal grandmother had breast cancer, age 27. Prior Study Comparison: 05/16/2020 Bilateral Screening Mammogram, [facility]. 10/10/2021 Bilateral MG 3D screening mammo w/cad, [facility]. 10/11/2022 Bilateral MG 3D screening mammo w/cad, [facility]. Tissue Density: The breasts are heterogeneously dense, which may obscure small masses. Findings: Analyzed By CAD. Right breast: There is no suspicious group of microcalcifications or new suspicious mass. Benign-appearing calcifications right breast. Left breast: There is no suspicious group of microcalcifications or new suspicious mass. Benign-appearing calcifications left breast. Overall Assessment: Benign, BI-RAD 2 Management: Screening Mammogram of both breasts in [address] [facility] will attempt to contact patient to return for supplemental views and ultrasound if indicated. Patient should continue monthly self-breast exams. A clinical breast exam by your physician is recommended on an annual basis. This exam should not preclude additional follow-up of suspicious palpable abnormalities. Note on Cassy scores and lifetime risk: 1. A Cassy score greater than 3% is considered moderate risk. If this is the case, consider specialist referral to assess eligibility for a risk reducing agent. 2. If overall lifetime risk for the development of breast cancer is 20% or higher, the patient may qualify for future screening with alternating mammogram and breast MRI. [facility], , 05/07/2024 2:23 PM. Electronically signed and approved by: Gagandeep Horner DO
== END | disposition home or self-care (01) ==
LOC: RADMAMWWP 13:36
PROVIDERS: ATTEND Family Medicine
DX: Z12.31 Encounter for screening mammogram for malignant neoplasm of breast (principal); R92.333 Mammographic heterogeneous density, bilateral breasts; Z80.3 Family history of malignant neoplasm of breast; Z78.0 Asymptomatic menopausal state
CPT/HCPCS: 77063; 77067

== ENCOUNTER → 2024-09-07 | Outpatient (CLI) | payer MEDICARE, BC ==
--- NOTE | 2024-09-07 13:16 | CT ---
EXAMINATION TYPE: CT iac wo con DATE OF EXAM: 09/07/2024 COMPARISON: None CLINICAL INDICATION: Female, 89 years old with history of H92.02 OTALGIA, LEFT EAR; PHH, Left ear amanda n. TECHNIQUE: CT scan of internal auditory canal is performed without contrast, thin cut axial images ar e obtained, coronal reformatted images are also reviewed. CT DLP: 142.[address] CTDI: mGy Automated exposure control for dose reduction was used. FINDINGS: The external auditory canals are patent bilaterally. Mastoid air cells show no evidence of abnormal opacification bilaterally. The middle ear ossicles are symmetric and unremarkable. There is no evidence of suspicious surrounding soft tissue density to suggest cholesteatoma. The scutum is preserved bilaterally. The cochlea and the semicircular canals are symmetric and unremarkable. Ves tibular aqueduct and internal carotid canal appear unremarkable. There is mild to moderate narrowing of the TMJ joint spaces with subchondral cysts left mandibular co ndyle.. Visualized paranasal sinuses are grossly clear. Visualized portion brain parenchyma is felt within normal limits. IMPRESSION: Moderate osteoarthritis of the TMJs bilaterally, left slightly greater than right. No oth er significant abnormality seen [facility], , 09/07/2024 1:14 PM
== END | disposition home or self-care (01) ==
LOC: RADCTMAIN 12:38
PROVIDERS: ATTEND Otolaryngology
DX: M26.643 Arthritis of bilateral temporomandibular joint (principal); H92.02 Otalgia, left ear
CPT/HCPCS: 70480

== ENCOUNTER 2024-10-10 09:08 | Inpatient (IN) | payer MEDICARE, BC ==
--- NOTE | 2024-10-10 11:41 | ED ---
General Adult HPI - General Chief complaint: Extremity Injury, Lower Stated complaint: Syncope Time Seen by Provider: 10/10/24 09:30 Source: patient, EMS Mode of arrival: EMS Limitations: no limitations - History of Present Illness Initial comments: 89-year-old female who presents to the emergency department after she had a syncopal episode at home. Patient went into [facility] earlier this morning for left hip pain. Patient does have history of hip pain and is under the care of Dr. Johnson. She recently had x-rays performed. Dr. Johnson did place her on a steroid course. States that this caused her to have significant diarrhea and therefore she did not take her dose starting on . She denies black or bloody stools. This morning the patient had significant pain to where she went into [facility]. She was given 2, 1 mg doses of Dilaudid and was discharged home. Patient was nonambulatory. States that they used a wheelchair to get her into the house. She was prior to hospital arrival to our facility she was ambulating with a walker to go to the bathroom. She ended up having a syncopal episode. She was caught by son. Denies any injuries from the fall. Patient feels weak. No chest pain or difficulty breathing. No other alleviating, precipitating or modifying factors - Related Data Home Medications Medication Instructions Recorded Confirmed Levothyroxine Sodium [Synthroid] 25 mcg PO DAILY 12/13/13 10/10/24 amLODIPine 5 mg PO BID 12/13/13 10/10/24 lisinopriL [Prinivil] 20 mg PO BID 12/13/13 10/10/24 Metoprolol Tartrate [Lopressor] 50 mg PO BID 10/12/18 10/10/24 Atorvastatin [Lipitor] 20 mg PO HS 10/10/24 10/10/24 Celecoxib [CeleBREX] 100 mg PO BID PRN 10/10/24 10/10/24 HYDROcodone/APAP 5-325MG [[place] 1 tab PO DIRECTED PRN 10/10/24 10/10/24 5-325] Omeprazole 20 mg PO BID 10/10/24 10/10/24 Rivaroxaban [Xarelto] 20 mg PO HS 10/10/24 10/10/24 hydroCHLOROthiazide [Hydrodiuril] 12.5 mg PO DAILY 10/10/24 10/10/24 Allergies Allergy/AdvReac Type Severity Reaction Status Date / Time narcotic AdvReac Nausea & Uncoded 10/10/24 17:55 Vomiting Review of Systems ROS Statement: Those systems with pertinent positive or pertinent negative responses have been documented in the HPI. ROS Other: All systems not noted in ROS Statement are negative. Past Medical History Past Medical History: Atrial Fibrillation, Hyperlipidemia, Hypertension, Thyroid Disorder Additional Past Medical History / Comment(s): Bradycardia with pacemaker, past slight lower GI bleed, hemorrhoids, hypothyroid, nephrolithiasis. History of Any Multi-Drug Resistant Organisms: None Reported Past Surgical History: AICD, Breast Surgery, Heart Catheterization, Pacemaker, Tonsillectomy, Tubal Ligation Additional Past Surgical History / Comment(s): pacemaker, lithotripsy, bilateral breast benign bxs, + blood per cologard-colonoscopy about 05/2017-normal Past Anesthesia/Blood Transfusion Reactions: No Reported Reaction Type of Cardiac Device: Permanent Pacemaker Device Placement Date:: 2013 Past Psychological History: No Psychological Hx Reported Smoking Status: Never smoker Past Alcohol Use History: Occasional Past Drug Use History: None Reported - Past Family History Father Family Medical History: Myocardial Infarction ([place]) Additional Family Medical History / Comment(s): Father of a [place] at the age of 63 yrs. Mother Additional Family Medical History / Comment(s): Mother had issues with alcohol and PDA. General Exam Limitations: no limitations General appearance: alert, in no apparent distress Head exam: Present: atraumatic, normocephalic, normal inspection Eye exam: Present: normal appearance, PERRL, EOMI. Absent: scleral icterus, conjunctival injection, periorbital swelling ENT exam: Present: normal exam, mucous membranes moist Neck exam: Present: normal inspection. Absent: tenderness, meningismus, lymphadenopathy Respiratory exam: Present: normal lung sounds bilaterally. Absent: respiratory distress, wheezes, rales, rhonchi, stridor Cardiovascular Exam: Present: regular rate, normal rhythm, normal heart sounds. Absent: systolic murmur, diastolic murmur, rubs, gallop, clicks GI/Abdominal exam: Present: soft, normal bowel sounds. Absent: distended, tenderness, guarding, rebound, rigid Extremities exam: Present: normal inspection, full ROM, normal capillary refill. Absent: tenderness, pedal edema, joint swelling, calf tenderness Back exam: Present: normal inspection Neurological exam: Present: alert, oriented X3, CN II-XII intact Psychiatric exam: Present: normal affect, normal mood Skin exam: Present: warm, dry, intact, normal color. Absent: rash Course Vital Signs 10/10/24 10/10/24 10/10/24 09:23 13:28 17:30 Temperature 97.1 F L Pulse Rate 70 65 68 Respiratory 18 18 20 Rate Blood Pressure 107/61 102/56 120/64 O2 Sat by Pulse 95 94 L 98 Oximetry 10/10/24 10/10/24 20:14 21:09 Temperature Pulse Rate 69 72 Respiratory 18 16 Rate Blood Pressure 125/55 129/64 O2 Sat by Pulse 98 95 Oximetry Medical Decision Making - Medical Decision Making Was pt. sent in by a medical professional or institution (, PA, REFINISHER, urgent care, hospital, or correction...) When possible be specific @ -No Did you speak to anyone other than the patient for history (EMS, parent, family, police, friend...)? What history was obtained from this source @ -I spoke with the son for history Did you review nursing and triage notes (agree or disagree)? Why? @ -I reviewed and agree with nursing and triage notes Were old charts reviewed (outside hosp., previous admission, EMS record, old EKG, old radiological studies, urgent care reports/EKG's, correction records)? Report findings @ -I reviewed the discharge summary from [facility] which was completed earlier today where patient was given significant pain meds Differential Diagnosis (chest pain, altered mental status, abdominal pain women, abdominal pain men, vaginal bleeding, weakness, fever, dyspnea, syncope, headache, dizziness, GI bleed, back pain, seizure, CVA, palpatations, mental health, musculoskeletal)? @ -Differential Syncope: Valvular disease, hypertrophic cardiomyopathy, pulmonary embolism, tamponade, tachycardia, bradycardia, [place], hypovolemia, hemorrhage, dissection, anemia, intracranial hemorrhage, seizure, hypoglycemia, carbon monoxide poisoning, this is not meant to be an all-inclusive list. EKG interpreted by me (3pts min.). @ -Yes and demonstrates electronic pacemaker with a rate of 60. ID interval 207. QRS 157. QTc of 508. Pacemaker captures appropriately X-rays interpreted by me (1pt min.). @ -None done CT interpreted by me (1pt min.). @ -None done U/S interpreted by me (1pt. min.). @ -None done What testing was considered but not performed or refused? (CT, X-rays, U/S, labs)? Why? @ -X-ray of the patient's hip however son reports that she just had this imagi ng completed What meds were considered but not given or refused? Why? @ -None Did you discuss the management of the patient with other professionals (professionals i.e. , PA, REFINISHER, lab, RT, psych nurse, addiction social worker, stamping die maker bench, teacher, neighborhood conservation officer, rehabilitation caseworker)? Give summary @ -Spoke with Dr. Johnson for the consult. Spoke with Dr. Roper for the admission Was smoking cessation discussed for >3mins.? @ -No Was critical care preformed (if so, how long)? @ -No Were there social determinants of health that impacted care today? How? (Homelessness, low income, unemployed, alcoholism, drug addiction, transportation, low edu. Level, literacy, decrease access to med. care, mcc, rehab)? @ -No Was there de-escalation of care discussed even if they declined (Discuss DNR or withdrawal of care, Hospice)? DNR status @ -No What co-morbidities impacted this encounter? (DM, HTN, Smoking, COPD, CAD, Cancer, CVA, ARF, Chemo, Hep., AIDS, mental health diagnosis, sleep apnea, morbid obesity)? @ -None Was patient admitted / discharged? Hospital course, mention meds given and route, prescriptions, significant lab abnormalities, going to OR and other pertinent info. @ -Upon arrival patient seen and evaluated in room 22. Thorough history and physical exam was performed. IV was established by ultrasound and patient was given intravenous Compazine. Laboratory studies are conducted. I did discuss completing x-rays however son states the patient just had them done. Patient reports send no hip pain at this time. Laboratory studies do demonstrate a leukocytosis. This may be due to acute UTI versus recent steroid use. Patient is covered with antibiotics. I did recommend admission for which the patient was agreeable. Spoke with Dr. Roper who agreed to admit the patient. Undiagnosed new problem with uncertain prognosis? @ -No Drug Therapy requiring intensive monitoring for toxicity (Heparin, Nitro, Insulin, Cardizem)? @ -No Were any procedures done? @ -No Diagnosis/symptom? @ -Acute syncope, acute right hip pain, acute leukocytosis, acute UTI Acute, or Chronic, or Acute on Chronic? @ -Acute Uncomplicated (without systemic symptoms) or Complicated (systemic symptoms)? @ -Complicated Side effects of treatment? @ -No Exacerbation, Progression, or Severe Exacerbation? @ -No Poses a threat to life or bodily function? How? (Chest pain, [place], [place], pneumonia, PE, COPD, DKA, ARF, appy, cholecystitis, CVA, Diverticulitis, Homicidal, Suicidal, threat to staff... and all critical care pts) @ -No - Lab Data Result diagrams: 10/12/24 05:00 10/12/24 05:00 Lab Results 10/10/24 10/10/24 10/10/24 Range/Units 12:29 14:07 14:22 WBC 21.40 H (4.50-10.00) 10*3/uL RBC 3.93 L (4.10-5.20) 10*6/uL Hgb 13.5 (12.0-15.0) g/dL Hct 37.5 (37.2-46.3) % MCV 95.4 (80.0-97.0) fL MCH 34.4 H (27.0-32.0) pg MCHC 36.0 (32.0-37.0) g/dL RDW (11.5-14.5) % Plt Count 303 (140-440) 10*3/uL MPV 9.4 L (9.5-12.2) fL Immature Gran % (Auto) 0.7 % Neutrophils % 86.4 % Lymphocytes % 5.4 % Monocytes % 7.4 % Eosinophils % 0.0 % Basophils % 0.1 % Immature Gran # 0.14 H (0.00-0.04) 10*3/uL Neutrophils # 18.49 H (1.80-7.70) 10*3/uL Lymphocytes # 1.15 (0.90-5.00) 10*3/uL Monocytes # 1.59 H (0.20-1.00) 10*3/uL Eosinophils # 0.00 L (0.04-0.35) 10*3/uL Basophils # 0.03 (0.00-0.10) 10*3/uL PT (10.0-12.5) sec INR (<1.2) APTT (22.0-30.0) sec Sodium 131 L (137-145) mmol/L Potassium 3.3 L (3.5-5.1) mmol/L Chloride 96 L (98-107) mmol/L Carbon Dioxide 25 (22-30) mmol/L Anion Gap 10 mmol/L BUN 24 H (7-17) mg/dL Creatinine 0.91 (0.52-1.04) mg/dL Est GFR (CKD-EPI)AfAm 65 (>60 ml/min/1.73 sqM) Est GFR (CKD-EPI)NonAf 57 (>60 ml/min/1.73 sqM) Glucose 121 H (74-99) mg/dL Calcium 9.3 (8.4-10.2) mg/dL Magnesium 2.3 (1.6-2.3) mg/dL Total Bilirubin 1.5 H (0.2-1.3) mg/dL AST 31 (14-36) U/L ALT 26 (4-34) U/L Alkaline Phosphatase 58 (38-126) U/L Troponin I (0.000-0.034) ng/mL Total Protein 6.2 L (6.3-8.2) g/dL Albumin 3.8 (3.5-5.0) g/dL Urine Color Yellow Urine Appearance Turbid H (Clear) Urine pH 6.0 (5.0-8.0) Ur Specific Buna 1.015 (1.001-1.035) Urine Protein 1+ H (Negative) Urine Glucose (UA) Negative (Negative) Urine Ketones Negative (Negative) Urine Blood Large H (Negative) Urine Nitrite Negative (Negative) Urine Bilirubin Negative (Negative) Urine Urobilinogen <2.0 (<2.0) mg/dL Ur Leukocyte Esterase Large H (Negative) Urine RBC 31 H (0-5) /hpf Urine WBC 163 H (0-5) /hpf Urine WBC Clumps Many H (None) /hpf Ur Squamous Epith Cells 10 H (0-4) /hpf Urine Bacteria Many H (None) /hpf Hyaline Casts 16 H (0-2) /lpf Urine Mucus Moderate H (None) /hpf 10/10/24 10/10/24 10/11/24 Range/Units 14:22 14:22 05:34 WBC 15.15 H (4.50-10.00) 10*3/uL RBC 3.00 L (4.10-5.20) 10*6/uL Hgb 10.2 L D (12.0-15.0) g/dL Hct 28.7 L (37.2-46.3) % MCV 95.7 (80.0-97.0) fL MCH 34.0 H (27.0-32.0) pg MCHC 35.5 (32.0-37.0) g/dL RDW 12.5 (11.5-14.5) % Plt Count 245 (140-440) 10*3/uL MPV 9.7 (9.5-12.2) fL Immature Gran % (Auto) % Neutrophils % 80.1 % Lymphocytes % 10.0 % Monocytes % 9.0 % Eosinophils % 0.2 % Basophils % 0.1 % Immature Gran # 0.09 H (0.00-0.04) 10*3/uL Neutrophils # 12.13 H (1.80-7.70) 10*3/uL Lymphocytes # 1.52 (0.90-5.00) 10*3/uL Monocytes # 1.37 H (0.20-1.00) 10*3/uL Eosinophils # 0.03 L (0.04-0.35) 10*3/uL Basophils # 0.01 (0.00-0.10) 10*3/uL PT 12.6 H (10.0-12.5) sec INR 1.2 H (<1.2) APTT 21.5 L (22.0-30.0) sec Sodium (137-145) mmol/L Potassium (3.5-5.1) mmol/L Chloride (98-107) mmol/L Carbon Dioxide (22-30) mmol/L Anion Gap mmol/L BUN (7-17) mg/dL Creatinine (0.52-1.04) mg/dL Est GFR (CKD-EPI)AfAm (>60 ml/min/1.73 sqM) Est GFR (CKD-EPI)NonAf (>60 ml/min/1.73 sqM) Glucose (74-99) mg/dL Calcium (8.4-10.2) mg/dL Magnesium (1.6-2.3) mg/dL Total Bilirubin (0.2-1.3) mg/dL AST (14-36) U/L ALT (4-34) U/L Alkaline Phosphatase (38-126) U/L Troponin I 0.014 (0.000-0.034) ng/mL Total Protein (6.3-8.2) g/dL Albumin (3.5-5.0) g/dL Urine Color Urine Appearance (Clear) Urine pH (5.0-8.0) Ur Specific Buna (1.001-1.035) Urine Protein (Negative) Urine Glucose (UA) (Negative) Urine Ketones (Negative) Urine Blood (Negative) Urine Nitrite (Negative) Urine Bilirubin (Negative) Urine Urobilinogen (<2.0) mg/dL Ur Leukocyte Esterase (Negative) Urine RBC (0-5) /hpf Urine WBC (0-5) /hpf Urine WBC Clumps (None) /hpf Ur Squamous Epith Cells (0-4) /hpf Urine Bacteria (None) /hpf Hyaline Casts (0-2) /lpf Urine Mucus (None) /hpf /16/ Range/Units 05:38 WBC (4.50-10.00) 10*3/uL RBC (4.10-5.20) 10*6/uL Hgb (12.0-15.0) g/dL Hct (37.2-46.3) % MCV (80.0-97.0) fL MCH (27.0-32.0) pg MCHC (32.0-37.0) g/dL RDW (11.5-14.5) % Plt Count (140-440) 10*3/uL MPV (9.5-12.2) fL Immature Gran % (Auto) % Neutrophils % % Lymphocytes % % Monocytes % % Eosinophils % % Basophils % % Immature Gran # (0.00-0.04) 10*3/uL Neutrophils # (1.80-7.70) 10*3/uL Lymphocytes # (0.90-5.00) 10*3/uL Monocytes # (0.20-1.00) 10*3/uL Eosinophils # (0.04-0.35) 10*3/uL Basophils # (0.00-0.10) 10*3/uL PT (10.0-12.5) sec INR (<1.2) APTT (22.0-30.0) sec Sodium 131 L (137-145) mmol/L Potassium 3.8 (3.5-5.1) mmol/L Chloride 99 (98-107) mmol/L Carbon Dioxide 24 (22-30) mmol/L Anion Gap 8 mmol/L BUN 27 H (7-17) mg/dL Creatinine 0.70 (0.52-1.04) mg/dL Est GFR (CKD-EPI)AfAm 89 (>60 ml/min/1.73 sqM) Est GFR (CKD-EPI)NonAf 78 (>60 ml/min/1.73 sqM) Glucose 103 H (74-99) mg/dL Calcium 8.9 (8.4-10.2) mg/dL Magnesium (1.6-2.3) mg/dL Total Bilirubin (0.2-1.3) mg/dL AST (14-36) U/L ALT (4-34) U/L Alkaline Phosphatase (38-126) U/L Troponin I (0.000-0.034) ng/mL Total Protein (6.3-8.2) g/dL Albumin (3.5-5.0) g/dL Urine Color Urine Appearance (Clear) Urine pH (5.0-8.0) Ur Specific Buna (1.001-1.035) Urine Protein (Negative) Urine Glucose (UA) (Negative) Urine Ketones (Negative) Urine Blood (Negative) Urine Nitrite (Negative) Urine Bilirubin (Negative) Urine Urobilinogen (<2.0) mg/dL Ur Leukocyte Esterase (Negative) Urine RBC (0-5) /hpf Urine WBC (0-5) /hpf Urine WBC Clumps (None) /hpf Ur Squamous Epith Cells (0-4) /hpf Urine Bacteria (None) /hpf Hyaline Casts (0-2) /lpf Urine Mucus (None) /hpf Disposition Clinical Impression: Left hip pain, Syncope, Leukocytosis, UTI (urinary tract infection) Disposition: ADMITTED IP TO THIS HOSP Condition: Stable Is patient prescribed a controlled substance at d/c from ED?: No Time of Disposition: 15:53 Decision to Admit Reason: Admit from EC Decision Date: 10/10/24 Decision Time: 15:53
[2024-10-10 12:54] LABS: Basophils # (A) 0.03 10*3/uL (0.00-0.10); Basophils % (A) 0.1 %; HCT 37.5 % (37.2-46.3); HGB 13.5 g/dL (12.0-15.0); Lymphocytes # (A) 1.15 10*3/uL (0.90-5.00); Lymphocytes % (A) 5.4 %; MCH 34.4 pg (27.0-32.0); MCV 95.4 fL (80.0-97.0); Mean Platelet Volume 9.4 fL (9.5-12.2); Monocytes # (A) 1.59 10*3/uL (0.20-1.00); Monocytes % (A) 7.4 %; Neutrophils # (A) 18.49 10*3/uL (1.80-7.70); Neutrophils % (A) 86.4 %; Platelet Count 303 10*3/uL (140-440); RBC 3.93 10*6/uL (4.10-5.20); RDW 12.5 % (11.5-14.5)
[2024-10-10] MEDS: SODIUM CHLORIDE 0.9% 500 ML 500 ML IV STA (13:24)
[2024-10-10] MEDS: PROCHLORPERAZINE INJ 10 MG/2 ML VIAL IVP STA (13:25)
[2024-10-10 14:20] LABS: Appearance,Urine Turbid (Clear); Bacteria,Urine Many /hpf; Bilirubin,Urine Negative (Negative); Blood,Urine Large (Negative); Color,Urine Yellow; Glucose,Urine (UA) Negative (Negative); Hyaline Casts,Urine 16 /lpf (0-2); Ketones,Urine Negative (Negative); Leukocyte Esterase,Urine Large (Negative); Mucus,Urine Moderate /hpf; Nitrite,Urine Negative (Negative); Protein,Urine 1+ (Negative); RBC,Urine 31 /hpf (0-5); Specific Gravity,Urine 1.015 (1.001-1.035); Squamous Epithelial Cell,Urine 10 /hpf (0-4); Urobilinogen,Urine <2.0 mg/dL (<2.0); WBC,Urine 163 /hpf (0-5)
[2024-10-10 15:02] LABS: AST 31 U/L (14-36); African American GFR (CKD) 65 (>60 ml/min/1.73 sqM); Albumin 3.8 g/dL (3.5-5.0); Alkaline Phosphatase 58 U/L (38-126); Anion Gap 10 mmol/L; Blood Urea Nitrogen 24 mg/dL (7-17); Calcium 9.3 mg/dL (8.4-10.2); Carbon Dioxide 25 mmol/L (22-30); Chloride 96 mmol/L (98-107); Glucose 121 mg/dL (74-99); Magnesium 2.3 mg/dL (1.6-2.3); Non-African American GFR(CKD) 57 (>60 ml/min/1.73 sqM); Potassium 3.3 mmol/L (3.5-5.1); Sodium 131 mmol/L (137-145); Total Bilirubin 1.5 mg/dL (0.2-1.3); Total Protein 6.2 g/dL (6.3-8.2)
[2024-10-10 15:05] LABS: INR 1.2 (<1.2); Prothrombin Time 12.6 sec (10.0-12.5)
[2024-10-10 15:08] LABS: ALT 26 U/L (4-34)
[2024-10-10 15:11] LABS: Partial Thromboplastin Time 21.5 sec (22.0-30.0)
[2024-10-10] MEDS ORDERED: NALOXONE 0.4 MG/ML 1 ML VIAL IV PRN (15:53)
[2024-10-10] MEDS: cefTRIAXone IN SWFI 1,000 MG/10 ML SYRINGE IVP STA (17:33)
[2024-10-10] MEDS: SODIUM CHLORIDE 0.9% 1,000 ML IV SCH (17:36)
[2024-10-10] MEDS: RIVAROXABAN 15 MG TAB PO SCH (22:34)
--- NOTE | 2024-10-11 00:54 | HP ---
HISTORY AND PHYSICAL CHIEF COMPLAINT: Syncope and assess left hip pain. HISTORY OF PRESENT ILLNESS: This is an 89-year-old woman with a past medical history of multiple medical problems including DJD, was complaining of left hip pain. The patient has seen Dr. Johnson, who started her on steroids. The patient also was seen in the [facility] apparently. The patient apparently has some diarrhea and a syncopal episode. The patient is on pain medications from [facility] and the patient came to [place], was admitted for further evaluation and treatment. There is no history of any fever, rigors, or chills at this time. PAST MEDICAL HISTORY: History of DJD. Rest of the history and chart is also reviewed. HOME MEDICATIONS: Reviewed, include HydroDIURIL. Doses and rest of medications reviewed. ALLERGIES: Narcotics. FAMILY HISTORY: History of myocardial infarction. SOCIAL HISTORY: No history of smoking or alcohol. REVIEW OF SYSTEMS: A 14-point review of systems is negative, except as mentioned earlier. PHYSICAL EXAMINATION: VITAL SIGNS: Pulse 63, blood pressure n, and respirations 16. CHEST: Clear to auscultation. CARDIOVASCULAR: S1, S2. ABDOMEN: Soft, mild diffuse tenderness in the lower part. LEGS: No edema. NERVOUS SYSTEM: No focal deficits. Movements of the hip are painful. LABORATORY DATA: WBC 21.4. UA showed possible UTI. ASSESSMENT: 1. Syncope for evaluation, possibly vasovagal, possibly pain medication induced. 2. Left hip pain and degenerative joint disease. 3. Possible acute urinary tract infection. 4. Hyponatremia. 5. Hypokalemia. 6. Elevated WBC up to 21.4. 7. Atrial fibrillation. 8. Hypertension. 9. Hyperlipidemia. RECOMMENDATIONS: This 89-year-old woman presented with multiple complex medical issues. We will monitor the patient closely. I would recommend to continue the current medications. Cautious pain management because of the syncope. Exact etiology of syncope is unknown at this time. I would recommend a full syncope workup also. Guarded prognosis. See orders for details. MMODL / IJN: [id number] / MTDD
[2024-10-11] MEDS: LEVOTHYROXINE 25 MCG TAB PO SCH (05:19)
[2024-10-11] MEDS: PANTOPRAZOLE 40 MG TABLET PO SCH (05:20)
[2024-10-11 06:23] LABS: African American GFR (CKD) 89 (>60 ml/min/1.73 sqM); Anion Gap 8 mmol/L; Blood Urea Nitrogen 27 mg/dL (7-17); Calcium 8.9 mg/dL (8.4-10.2); Carbon Dioxide 24 mmol/L (22-30); Chloride 99 mmol/L (98-107); Glucose 103 mg/dL (74-99); Non-African American GFR(CKD) 78 (>60 ml/min/1.73 sqM); Potassium 3.8 mmol/L (3.5-5.1); Sodium 131 mmol/L (137-145)
[2024-10-11 06:45] LABS: Basophils # (A) 0.01 10*3/uL (0.00-0.10); Basophils % (A) 0.1 %; Eosinophils # (A) 0.03 10*3/uL (0.04-0.35); Eosinophils % (A) 0.2 %; HCT 28.7 % (37.2-46.3); Lymphocytes # (A) 1.52 10*3/uL (0.90-5.00); MCHC 35.5 g/dL (32.0-37.0); MCV 95.7 fL (80.0-97.0); Mean Platelet Volume 9.7 fL (9.5-12.2); Monocytes # (A) 1.37 10*3/uL (0.20-1.00); Neutrophils # (A) 12.13 10*3/uL (1.80-7.70); Neutrophils % (A) 80.1 %; Platelet Count 245 10*3/uL (140-440); RDW 12.5 % (11.5-14.5); WBC 15.15 10*3/uL (4.50-10.00)
[2024-10-11 07:17] LABS: HGB 10.2 g/dL (12.0-15.0)
--- NOTE | 2024-10-11 07:32 | XR ---
EXAMINATION TYPE: XR Hip Bilateral and AP pelvis DATE OF EXAM: 10/10/2024 10:53 PM COMPARISON: None. CLINICAL INDICATION: Female, 89 years old with history of with both hips, DJD, pain TECHNIQUE: 2 view(s) obtained bilateral hips. Exam supplemented with an AP pelvis FINDINGS: There is a right femoral prosthesis with acetabular component. Symphysis pubis and sacroiliac joints are normal. Bowel gas is present. Femoral component articulates with the acetabular component. No acute fractures evident. There may be some developing myositis ossificans inferior to the right pubic ramus. Left femoral head articulates with the acetabulum. IMPRESSION: 1. No acute osseous abnormality bilateral hips. 2. 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 [facility], , 10/11/2024 7:30 AM
[2024-10-11] MEDS: amLODIPine 5 MG TAB PO SCH (08:39)
[2024-10-11] MEDS: lisinopriL 20 MG TAB PO SCH (08:39)
[2024-10-11] MEDS: METOPROLOL TARTRATE 25 MG TAB PO SCH (08:39)
[2024-10-11] MEDS: hydroCHLOROthiazide 12.5 MG CAP PO SCH (08:39)
--- NOTE | 2024-10-11 08:47 | P.CNOR ---
History of Present Illness - [facility] Consult date: 10/11/24 Consult reason: joint pain (Low back and left hip pain.) History of present illness: This is an 89-year-old female admitted with intractable left hip pain and syncopal episode. The patient was seen on 10/05/2024 in our office with Dr. 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 She also has history of lumbar radiculopathy. She had a epidural steroid injection in July 2024 and a greater trochanteric bursal injection in August [address] Romero. She was recently placed on a prednisone taper which she began on Friday last week. She states that she took the steroid for 3 days but then developed diarrhea. She stopped the prednisone at that time. She states that she tried to take another dose of prednisone and had diarrhea again. She states that today her hip pain is improved. She no longer has diarrhea. She had a syncopal episode yesterday while she was walking and she was caught by her son so she did not fall. She is admitted for further evaluation and workup for the syncopal episode. We are consulted for orthopedic evaluation. Past Medical History Past Medical History: Atrial Fibrillation, Hyperlipidemia, Hypertension, Thyroid Disorder Additional Past Medical History / Comment(s): Bradycardia with pacemaker, past slight lower GI bleed, hemorrhoids, hypothyroid, nephrolithiasis. History of Any Multi-Drug Resistant Organisms: None Reported Past Surgical History: AICD, Breast Surgery, Heart Catheterization, Pacemaker, Tonsillectomy, Tubal Ligation Additional Past Surgical History / Comment(s): pacemaker, lithotripsy, bilateral breast benign bxs, + blood per cologard-colonoscopy about 05/2017-normal Past Anesthesia/Blood Transfusion Reactions: No Reported Reaction Type of Cardiac Device: Permanent Pacemaker Device Placement Date:: 2013 Past Psychological History: No Psychological Hx Reported Additional Psychological History / Comment(s): Pt resides with her spouse. She is independent. Smoking Status: Never smoker Past Alcohol Use History: Occasional Past Drug Use History: None Reported - Past Family History Father Family Medical History: Myocardial Infarction ([place]) Additional Family Medical History / Comment(s): Father of a [place] at the age of 63 yrs. Mother Additional Family Medical History / Comment(s): Mother had issues with alcohol and PDA. Medications and Allergies Home Medications Medication Instructions Recorded Confirmed Type Levothyroxine Sodium [Synthroid] 25 mcg PO DAILY 12/13/13 10/10/24 History amLODIPine 5 mg PO BID 12/13/13 10/10/24 History lisinopriL [Prinivil] 20 mg PO BID 12/13/13 10/10/24 History Metoprolol Tartrate [Lopressor] 50 mg PO BID 10/12/18 10/10/24 History Atorvastatin [Lipitor] 20 mg PO HS 10/10/24 10/10/24 History Celecoxib [CeleBREX] 100 mg PO BID PRN 10/10/24 10/10/24 History HYDROcodone/APAP 5-325MG [[place] 1 tab PO DIRECTED PRN 10/10/24 10/10/24 History 5-325] Omeprazole 20 mg PO BID 10/10/24 10/10/24 History Rivaroxaban [Xarelto] 20 mg PO HS 10/10/24 10/10/24 History hydroCHLOROthiazide [Hydrodiuril] 12.5 mg PO DAILY 10/10/24 10/10/24 History Allergies Allergy/AdvReac Type Severity Reaction Status Date / Time narcotic AdvReac Nausea & Uncoded 10/10/24 17:55 Vomiting Physical Examination This is a pleasant 89-year-old female in no acute distress. She is alert and oriented x 3. Exam of the low back reveals no obvious deformity. There is minimal tenderness with palpation about the lumbar spine. There is some tenderness over the left paraspinal and left buttock. Exam of the lower extremities reveals no deformity. There is mild tenderness to palpation about the greater trochanter. She can flex her hip and knee past 90 degrees. She has full extension of the knee. She is able to perform a straight leg raise with good strength. No hip pain with logroll. Full foot and ankle motion without difficulty or pain. Neurovascular status to the left lower extremity is intact. Results - Labs Labs: Abnormal Lab Results - Last 24 Hours (Table) 10/10/24 10/10/24 10/10/24 Range/Units 12:29 14:07 14:22 WBC 21.40 H (4.50-10.00) 10*3/uL RBC 3.93 L (4.10-5.20) 10*6/uL Hgb (12.0-15.0) g/dL Hct (37.2-46.3) % MCH 34.4 H (27.0-32.0) pg MPV 9.4 L (9.5-12.2) fL Immature Gran # 0.14 H (0.00-0.04) 10*3/uL Neutrophils # 18.49 H (1.80-7.70) 10*3/uL Monocytes # 1.59 H (0.20-1.00) 10*3/uL Eosinophils # 0.00 L (0.04-0.35) 10*3/uL PT (10.0-12.5) sec INR (<1.2) APTT (22.0-30.0) sec Sodium 131 L (137-145) mmol/L Potassium 3.3 L (3.5-5.1) mmol/L Chloride 96 L (98-107) mmol/L BUN 24 H (7-17) mg/dL Glucose 121 H (74-99) mg/dL Total Bilirubin 1.5 H (0.2-1.3) mg/dL Total Protein 6.2 L (6.3-8.2) g/dL Urine Appearance Turbid H (Clear) Urine Protein 1+ H (Negative) Urine Blood Large H (Negative) Ur Leukocyte Esterase Large H (Negative) Urine RBC 31 H (0-5) /hpf Urine WBC 163 H (0-5) /hpf Urine WBC Clumps Many H (None) /hpf Ur Squamous Epith Cells 10 H (0-4) /hpf Urine Bacteria Many H (None) /hpf Hyaline Casts 16 H (0-2) /lpf Urine Mucus Moderate H (None) /hpf 10/10/24 10/11/24 10/11/24 Range/Units 14:22 05:34 05:38 WBC 15.15 H (4.50-10.00) 10*3/uL RBC 3.00 L (4.10-5.20) 10*6/uL Hgb 10.2 L D (12.0-15.0) g/dL Hct 28.7 L (37.2-46.3) % MCH 34.0 H (27.0-32.0) pg MPV (9.5-12.2) fL Immature Gran # 0.09 H (0.00-0.04) 10*3/uL Neutrophils # 12.13 H (1.80-7.70) 10*3/uL Monocytes # 1.37 H (0.20-1.00) 10*3/uL Eosinophils # 0.03 L (0.04-0.35) 10*3/uL PT 12.6 H (10.0-12.5) sec INR 1.2 H (<1.2) APTT 21.5 L (22.0-30.0) sec Sodium 131 L (137-145) mmol/L Potassium (3.5-5.1) mmol/L Chloride (98-107) mmol/L BUN 27 H (7-17) mg/dL Glucose 103 H (74-99) mg/dL Total Bilirubin (0.2-1.3) mg/dL Total Protein (6.3-8.2) g/dL Urine Appearance (Clear) Urine Protein (Negative) Urine Blood (Negative) Ur Leukocyte Esterase (Negative) Urine RBC (0-5) /hpf Urine WBC (0-5) /hpf Urine WBC Clumps (None) /hpf Ur Squamous Epith Cells (0-4) /hpf Urine Bacteria (None) /hpf Hyaline Casts (0-2) /lpf Urine Mucus (None) /hpf H & H 10/10/24 10/11/24 Range/Units 12:29 05:34 Hgb 13.5 10.2 L D (12.0-15.0) g/dL Hct 37.5 28.7 L (37.2-46.3) % Coagulation 10/10/24 Range/Units 14:22 INR 1.2 H (<1.2) Result Diagrams: 10/11/24 05:34 10/11/24 05:38 Assessment and Plan (1) Lumbar back pain with radiculopathy affecting left lower extremity Current Visit: Yes Status: Acute Code(s): M54.16 - RADICULOPATHY, LUMBAR R EGION SNOMED Code(s): 103382637 (2) Trochanteric bursitis, left hip Current Visit: Yes Status: Acute Code(s): M70.62 - TROCHANTERIC BURSITIS, LEFT HIP SNOMED Code(s): 1246158 (3) Left hip pain Current Visit: Yes Status: Acute Code(s): M25.552 - PAIN IN LEFT HIP SNOMED Code(s): 00573437 (4) Syncope Current Visit: Yes Status: Acute Code(s): R55 - SYNCOPE AND COLLAPSE SNOMED Code(s): 888734517 (5) UTI (urinary tract infection) Current Visit: Yes Status: Acute Code(s): N39.0 - URINARY TRACT INFECTION, S ITE NOT SPECIFIED SNOMED Code(s): 25155412 Plan: The clinical findings are discussed with the patient. It is recommended she continue pain control with internal medicine. I will consult physical therapy to evaluate and treat. She is to follow-up with Dr. Johnson as previously scheduled.
[2024-10-11] MEDS: ATORVASTATIN 20 MG TAB PO SCH (20:56)
[2024-10-12] MEDS: MELOXICAM 7.5 MG TAB PO PRN (00:15)
--- NOTE | 2024-10-12 02:42 | PN ---
PROGRESS NOTE DATE OF SERVICE: 10/11/2024 SUBJECTIVE: This 89-year-old woman, who was admitted with syncope, also had significant pain of the left hip and DJD also. The patient also had possible acute UTI. No chest pain. No palpitations. No fever. The patient also had a relatively low blood pressure. Medications reviewed. Orthopedics has evaluated the patient and recommended continue with the pain control and physical therapy. PHYSICAL EXAMINATION: VITAL SIGNS: Pulse is 75, blood pressure 81/40, and respirations 16. HEENT: Conjunctivae normal. CARDIOVASCULAR: S1, S2. ABDOMEN: Soft, nontender. LEGS: No edema. NERVOUS SYSTEM: Nonfocal. Acute uti with hypotension possible sepsis DJD high wbc RECOMMENDATIONS: I would recommend to continue with the current medications and symptomatic treatment, and continue with the antibiotics, follow the cultures. Also, recommend Infectious Disease evaluation for evaluation of the UTI with possible sepsis also. The prognosis maybe guarded because of multiple complex medical issues. Further recommendations to follow. I would recommend a bolus of 1 L and we will stop the Norvasc and HydroDIURIL also. Guarded prognosis. Further recommendations to follow. MMODL / IJN: [id number] / GUALBERTO
--- NOTE | 2024-10-12 06:29 | P.CONS ---
History of Present Illness - Reason for Consult Consult date: 10/11/24 Sepsis Requesting physician: Yulisa Hunter - Chief Complaint Weakness x 1 day - History of Present Illness Patient is a 89-year-old female with a past medical history significant for hypertension hyperlipidemia atrial fibrillation hypothyroidism, patient was brought into the hospital concern for a syncopal episode at home patient was recently evaluated at [facility] for left hip pain and apparently the patient has been given some stronger pain medication patient was complaining of weakness did have some mental status changes and diarrhea with the patient has been brought into the hospital on arrival to the ER patient was afebrile and no fever has been recorded subsequently patient was not tachycardic mildly hypotensive but not hypoxic or need for supplemental oxygen, patient did have a white count of 21.40 with a left shift creatinine has been normal bilirubin elevated rest of the liver enzymes are normal she did have positive UA cultures are currently pending blood cultures are pending patient was started on ceftriaxone infectious disease was consulted regarding sepsis patient has been complaining of lower abdominal/suprapubic discomfort but denies having any significant burning or frequency of urine Review of Systems Positive point and negatives has been mentioned in the HPI, complete review of systems was performed and all other systems are negative Past Medical History Past Medical History: Atrial Fibrillation, Hyperlipidemia, Hypertension, Thyroid Disorder Additional Past Medical History / Comment(s): Bradycardia with pacemaker, past slight lower GI bleed, hemorrhoids, hypothyroid, nephrolithiasis. History of Any Multi-Drug Resistant Organisms: None Reported Past Surgical History: AICD, Breast Surgery, Heart Catheterization, Pacemaker, Tonsillectomy, Tubal Ligation Additional Past Surgical History / Comment(s): pacemaker, lithotripsy, bilateral breast benign bxs, + blood per cologard-colonoscopy about 05/2017-normal Past Anesthesia/Blood Transfusion Reactions: No Reported Reaction Type of Cardiac Device: Permanent Pacemaker Device Placement Date:: 2013 Past Psychological History: No Psychological Hx Reported Additional Psychological History / Comment(s): Pt resides with her spouse. She is independent. Smoking Status: Never smoker Past Alcohol Use History: Occasional Past Drug Use History: None Reported - Past Family History Father Family Medical History: Myocardial Infarction ([place]) Additional Family Medical History / Comment(s): Father of a [place] at the age of 63 yrs. Mother Additional Family Medical History / Comment(s): Mother had issues with alcohol and PDA. Medications and Allergies Home Medications Medication Instructions Recorded Confirmed Type Levothyroxine Sodium [Synthroid] 25 mcg PO DAILY 12/13/13 10/10/24 History amLODIPine 5 mg PO BID 12/13/13 10/10/24 History lisinopriL [Prinivil] 20 mg PO BID 12/13/13 10/10/24 History Metoprolol Tartrate [Lopressor] 50 mg PO BID 10/12/18 10/10/24 History Atorvastatin [Lipitor] 20 mg PO HS 10/10/24 10/10/24 History Celecoxib [CeleBREX] 100 mg PO BID PRN 10/10/24 10/10/24 History HYDROcodone/APAP 5-325MG [[place] 1 tab PO DIRECTED PRN 10/10/24 10/10/24 History 5-325] Omeprazole 20 mg PO BID 10/10/24 10/10/24 History Rivaroxaban [Xarelto] 20 mg PO HS 10/10/24 10/10/24 History hydroCHLOROthiazide [Hydrodiuril] 12.5 mg PO DAILY 10/10/24 10/10/24 History Allergies Allergy/AdvReac Type Severity Reaction Status Date / Time narcotic AdvReac Nausea & Uncoded 10/10/24 17:55 Vomiting Physical Exam Vitals: Vital Signs Temp Pulse Pulse Pulse Pulse Pulse Resp 10/11/24 13:41 97.7 F 55 L 16 10/11/24 13:08 17 10/11/24 08:28 17 10/11/24 08:26 56 L 10/11/24 08:06 97.9 F 80 75 59 L 16 10/11/24 01:25 78 17 10/11/24 01:05 98.2 F 78 17 10/10/24 21:52 97.7 F 63 16 10/10/24 21:09 72 16 10/10/24 20:14 69 18 BP BP BP BP BP Pulse Ox 10/11/24 13:41 93/46 92 L 10/11/24 13:08 10/11/24 08:28 10/11/24 08:26 82/51 10/11/24 08:06 81/48 78/46 85/48 92 L 10/11/24 01:25 10/11/24 01:05 108/69 93 L 10/10/24 21:52 109/64 94 L 10/10/24 21:09 129/64 95 10/10/24 20:14 125/55 98 Intake and Output 10/11/24 10/11/24 10/11/24 06:59 14:59 22:59 Intake Total 240 590 Balance 240 590 Intake: Oral 240 590 Other: Voiding Method Bedside Commode Bedside Commode # Voids 2 2 GENERAL DESCRIPTION: Elderly female lying in bed, no distress. No tachypnea or accessory muscle of respiration use. HEENT: Shows Pallor , no scleral icterus. Oral mucous membrane is dry. No pharyngeal erythema or thrush NECK: Trachea central, no thyromegaly. LUNGS: Unlabored breathing. Clear to auscultation anteriorly. No wheeze or crackle. HEART: S1, S2, regular rate and rhythm. No loud murmur ABDOMEN: Soft, suprapubic tenderness EXTREMITIES: No edema of feet. SKIN: No rash, no masses palpable. NEUROLOGICAL: The patient is awake, alert, oriented x3, mood and affect normal. Results CBC & Chem 7: 10/11/24 05:34 10/11/24 05:38 Labs: Abnormal Lab Results - Last 24 Hours (Table) 10/11/24 10/11/24 Range/Units 05:34 05:38 WBC 15.15 H (4.50-10.00) 10*3/uL RBC 3.00 L (4.10-5.20) 10*6/uL Hgb 10.2 L D (12.0-15.0) g/dL Hct 28.7 L (37.2-46.3) % MCH 34.0 H (27.0-32.0) pg Immature Gran # 0.09 H (0.00-0.04) 10*3/uL Neutrophils # 12.13 H (1.80-7.70) 10*3/uL Monocytes # 1.37 H (0.20-1.00) 10*3/uL Eosinophils # 0.03 L (0.04-0.35) 10*3/uL Sodium 131 L (137-145) mmol/L BUN 27 H (7-17) mg/dL Glucose 103 H (74-99) mg/dL Assessment and Plan (1) Leukocytosis Current Visit: Yes Status: Acute Code(s): D72.829 - ELEVATED WHITE BLOOD CE LL COUNT, UNSPECIFIED SNOMED Code(s): 313399162 (2) UTI (urinary tract infection) Current Visit: Yes Status: Acute Code(s): N39.0 - URINARY TRACT INFECTION, SITE NOT SPECIFIED SNOMED Code(s): 39248162 Plan: 1patient presented to hospital with weakness did have syncopal episode patient did have suprapubic pain as well as tenderness positive UA concerning for symptomatic UTI likely from enteric gram-negative pathogen 2-patient to be treated with Rocephin 2 g daily while waiting for the culture to finalize We will follow on clinical condition and cultures to further adjust medication if needed Thank you for this consultation we will follow the patient along with you Dictation was produced using [employer] dictation software. please excuse any grammatical, word or spelling errors. Time with Patient: Greater than 30
[2024-10-12] MEDS: HYDROcodone/APAP 5-325MG 1 EACH TAB PO PRN (06:49)
[2024-10-12 08:03] LABS: Basophils # (A) 0.01 X 10*3/uL (0.00-0.10); Basophils % (A) 0.1 %; Eosinophils # (A) 0.02 X 10*3/uL (0.04-0.35); Eosinophils % (A) 0.2 %; HCT 27.7 % (37.2-46.3); Lymphocytes # (A) 1.27 X 10*3/uL (0.90-5.00); MCH 33.5 pg (27.0-32.0); MCHC 32.5 g/dL (32.0-37.0); Mean Platelet Volume 9.6 FL (9.5-12.2); Monocytes # (A) 0.97 X 10*3/uL (0.20-1.00); Monocytes % (A) 9.2 %; NRBC Per 100 WBC 0 X 10*3/uL (0.00-0.01); Neutrophils # (A) 8.25 X 10*3/uL (1.80-7.70); Neutrophils % (A) 77.8 %; Platelet Count 211 X 10*3/uL (140-440); RBC 2.69 X 10*6/uL (4.10-5.20); WBC 10.59 X 10*3/uL (4.50-10.00)
[2024-10-12 08:26] LABS: ALT 19 U/L (8-44); AST 34 U/L (13-35); Albumin 3.1 g/dL (3.8-4.9); Albumin/Globulin Ratio 1.94 Ratio (1.60-3.17); Alkaline Phosphatase 48 U/L (41-126); BUN/Creat Ratio 24.17 Ratio (12.00-20.00); Blood Urea Nitrogen 14.5 mg/dL (9.0-27.0); Calcium 8.4 mg/dL (8.7-10.3); Carbon Dioxide 23.2 mmol/L (21.6-31.8); Chloride 104 mmol/L (96-109); Globulin 1.6 g/dL (1.6-3.3); Glucose 127 mg/dL (70-110); Potassium 3.5 mmol/L (3.5-5.5); Sodium 137 mmol/L (135-145); Total Bilirubin 0.7 mg/dL (0.3-1.2); Total Protein 4.7 g/dL (6.2-8.2)
--- NOTE | 2024-10-12 14:35 | P.PN ---
Subjective Progress Note Date: 10/12/24 Principal diagnosis: Reason for follow-up is leukocytosis question of UTI Patient is a 89-year-old female with a past medical history significant for hypertension hyperlipidemia atrial fibrillation hypothyroidism, patient was brought into the hospital concern for a syncopal episode at home patient did have a some mental status changes elevated white count positive UA concerning for symptomatic UTI. On today's evaluation that is 10/12/2024, Patient is afebrile this morning patient denies having any chest pain shortness of breath or cough, the patient is currently on room air, patient denies any abdominal pain no diarrhea no nausea no vomiting, mention feeling better. Patient white count is down to 10.59, creatinine 0.6 cultures currently pending Objective - Vital Signs Vital signs: Vital Signs Temp 97.4 F L 10/12/24 07:29 Pulse 95 10/12/24 07:29 Resp 16 10/12/24 07:29 BP 147/68 10/12/24 07:29 Pulse Ox 94 L 10/12/24 07:29 FiO2 Intake & Output 10/11/24 10/12/24 10/12/24 18:59 06:59 18:59 Intake Total 830 221 Balance 830 221 Intake: Oral 830 221 Other: Voiding Method Bedside Commode Toilet Toilet # Voids 2 3 2 - Exam GENERAL DESCRIPTION: An elderly female lying in bed in no distress RESPIRATORY SYSTEM: Unlabored breathing , decreased breath sounds at bases HEART: S1 S2 regular rate and rhythm , ABDOMEN: Soft , no tenderness EXTREMITIES: No edema feet - Labs CBC & Chem 7: 10/12/24 05:00 10/12/24 05:00 Labs: Abnormal Lab Results - Last 24 Hours (Table) 10/12/24 10/12/24 Range/Units 05:00 05:00 WBC 10.59 H (4.50-10.00) X 10*3/uL RBC 2.69 L (4.10-5.20) X 10*6/uL Hgb 9.0 L (12.0-15.0) g/dL Hct 27.7 L (37.2-46.3) % MCV 103.0 H (80.0-97.0) [place] MCH 33.5 H (27.0-32.0) pg Immature Gran # 0.07 H (0.00-0.04) X 10*3/uL Neutrophils # 8.25 H (1.80-7.70) X 10*3/uL Eosinophils # 0.02 L (0.04-0.35) X 10*3/uL BUN/Creatinine Ratio 24.17 H (12.00-20.00) Ratio Glucose 127 H (70-110) mg/dL Calcium 8.4 L (8.7-10.3) mg/dL Total Protein 4.7 L (6.2-8.2) g/dL Albumin 3.1 L (3.8-4.9) g/dL Microbiology - Last 24 Hours (Table) 10/10/24 22:34 Blood Culture - Preliminary Blood 10/10/24 06:30 Urine Culture - Final Urine,Voided Assessment and Plan (1) Leukocytosis Current Visit: Yes Status: Acute Code(s): D72.829 - ELEVATED WHITE BLOOD CELL COUNT, UNSPECIFIED SNOMED Code(s): 199968910 (2) UTI (urinary tract infection) Current Visit: Yes Status: Acute Code(s): N39.0 - URINARY TRACT INFECTION, SITE NOT SPECIFIED SNOMED Code(s): 73029995 Plan: 1patient presented to hospital with weakness did have syncopal episode patient did have suprapubic pain as well as tenderness positive UA concerning for symptomatic UTI likely from enteric gram-negative pathogen 2-patient did have improvement clinically with Rocephin continue however blood and urine culture have been negative so far we will check a CT abdominal pelvis to make sure there was no intra-abdominal pathology responsible for her elevated white count Dictation was produced using [employer] dictation software. please excuse any grammatical, word or spelling errors. Time with Patient: Less than 30
[2024-10-12] MEDS: IOPAMIDOL CONTRAST (ORAL USE) VIAL PO PRN (14:45)
--- NOTE | 2024-10-12 20:33 | PN ---
PROGRESS NOTE DATE OF SERVICE: 10/12/2024 SUBJECTIVE: This 89-year-old woman was admitted with UTI and possible sepsis, is improving significantly. No chest pain. No palpitation. PHYSICAL EXAMINATION: VITAL SIGNS: Pulse 95, blood pressure 147/68, and respirations 16. CHEST: Clear to auscultation. ABDOMEN: Soft, nondistended. NERVOUS SYSTEM: Nonfocal. LABORATORY DATA: Cultures are negative so far. WBC 10.59. ASSESSMENT: 1. Acute urinary tract infection with hypotension with possible sepsis, present on admission. 2. Degenerative joint disease. 3. Elevated WBC. 4. Left hip pain and degenerative joint disease. 5. History of syncope, possibly vasovagal. 6. Hyponatremia and hypokalemia. 7. Multiple complex medical issues. RECOMMENDATIONS: Recommend to continue current medications, symptomatic treatment, antibiotics. We will monitor the blood pressure closely. Guarded prognosis. Further recommendations to follow. MMODL / IJN: [id number] /
--- NOTE | 2024-10-12 21:08 | CT ---
EXAMINATION TYPE: CT abdomen pelvis w con DATE OF EXAM: 10/12/2024 5:27 PM COMPARISON: 08/05/2014 CLINICAL INDICATION: Female, 89 years old with history of Leukocytosis/fever, Leukocytosis/fever/diar greg TECHNIQUE: Axial images were obtained from above the diaphragm to the pubic rami in the axial plane a t 5 mm thick sections. Reconstructed images are reviewed on the computer in the coronal plane. CONTRAST: 100 ml mL of Isovue 300. Study performed with Oral Contrast DLP: 588.5 mGycm, Automated exposure control for dose reduction was used. FINDINGS: Limited CT sections are obtained the lung bases. The lung bases are clear. CT ABDOMEN: Liver: Normal Spleen: Normal Pancreas: Normal Adrenal glands: The adrenal glands are normal. Gallbladder: Normal Kidneys: No masses are evident. No hydronephrosis is present. There is a 2.0 cm cyst lateral inferi or pole left renal cyst there is a posterior medial mid right kidney measuring 1.3 Delayed images we re obtained through the kidneys, which remain unremarkable. Aorta: Vascular calcification is within the aorta. Inferior vena cava: Normal. CT PELVIS: Loops of bowel within the abdomen and pelvis are normal. There are loops of bowel which are incom pletely distended or lack oral contrast limiting their evaluation. Appendix: Normal as visualized. Urinary bladder: Normal. Partially obscured by right hip prosthesis being hardening artifact. Genitourinary structures: There is a 4.5 cm left adnexal cyst. The uterus appears unremarkable. Osseous structures: No suspicious lytic or sclerotic lesions. Degenerative disc changes at L5-S1. Fac et hypertrophy is present at L5-S1. IMPRESSION: 1. 4.5 cm left adnexal cyst. 2. Bilateral renal cysts. 3. No suspicious focal area suspicious for source of infection [facility], , 10/12/2024 9:05 PM
[2024-10-13 05:11] LABS: African American GFR (CKD) >90 (>60 ml/min/1.73 sqM); Anion Gap 7 mmol/L; Blood Urea Nitrogen 14 mg/dL (7-17); Calcium 9.1 mg/dL (8.4-10.2); Carbon Dioxide 24 mmol/L (22-30); Chloride 103 mmol/L (98-107); Glucose 107 mg/dL (74-99); Non-African American GFR(CKD) 87 (>60 ml/min/1.73 sqM); Potassium 3.4 mmol/L (3.5-5.1); Sodium 134 mmol/L (137-145)
[2024-10-13 05:20] LABS: Basophils # (A) 0.02 10*3/uL (0.00-0.10); Basophils % (A) 0.2 %; Eosinophils % (A) 0.9 %; HCT 27.5 % (37.2-46.3); HGB 9.6 g/dL (12.0-15.0); Lymphocytes # (A) 1.66 10*3/uL (0.90-5.00); Lymphocytes % (A) 14.5 %; MCH 34.3 pg (27.0-32.0); MCHC 34.9 g/dL (32.0-37.0); MCV 98.2 fL (80.0-97.0); Mean Platelet Volume 9.5 fL (9.5-12.2); Monocytes # (A) 1.06 10*3/uL (0.20-1.00); Monocytes % (A) 9.2 %; Neutrophils # (A) 8.43 10*3/uL (1.80-7.70); Neutrophils % (A) 73.5 %; Platelet Count 208 10*3/uL (140-440); WBC 11.46 10*3/uL (4.50-10.00)
[2024-10-13] MEDS ORDERED: Potassium Replacement Protocol 1 EACH MISC MISCELLANE PRN (10:53)
[2024-10-13] MEDS ORDERED: Magnesium Replacement Protocol 1 EACH MISC MISCELLANE PRN (10:53)
--- NOTE | 2024-10-13 11:26 | PN ---
PROGRESS NOTE DATE OF SERVICE: 10/13/2024 SUBJECTIVE: 89-year-old woman was admitted with UTI with possible sepsis, also had significant hematoma on the left hip area also. The patient underwent abdominal and pelvis CAT scan, which showed adnexal cyst and no acute infection. PHYSICAL EXAMINATION: VITAL SIGNS: Pulse is 74, blood pressure 190/64, and respirations 16. CHEST: Clear to auscultation. CARDIOVASCULAR: S1, S2. ABDOMEN: Soft. SKIN: Significant hematoma on the left side of the abdomen and hip area and left upper thigh also present. LABORATORY DATA: WBC 7.46. Other labs are noted. ASSESSMENT: 1. Acute urinary tract infection with hypotension with possible sepsis, present on admission. 2. Degenerative joint disease. 3. Elevated WBC. 4. Hematoma with left hip area as well as left flank. 5. Left hip pain and degenerative joint disease. 6. History of syncope, possibly vasovagal. 7. Hyponatremia and hypokalemia. 8. Multiple complex medical issues. RECOMMENDATION: Continue current medications, symptomatic treatment, otherwise closely follow. Repeat labs. Guarded prognosis. Further recommendations to follow. MMODL / IJN: [id number] /
[2024-10-14 08:37] LABS: Magnesium 1.4 mg/dL (1.5-2.4)
[2024-10-14 08:39] LABS: Blood Urea Nitrogen 14.3 mg/dL (9.0-27.0); Chloride 103 mmol/L (96-109); Glucose 106 mg/dL (70-110); Potassium 3.5 mmol/L (3.5-5.5); Sodium 139 mmol/L (135-145)
[2024-10-14 08:40] LABS: ALT 28 U/L (8-44); AST 28 U/L (13-35); Albumin 3.1 g/dL (3.8-4.9); Albumin/Globulin Ratio 1.72 Ratio (1.60-3.17); Alkaline Phosphatase 52 U/L (41-126); Calcium 8.4 mg/dL (8.7-10.3); Carbon Dioxide 25.8 mmol/L (21.6-31.8); Globulin 1.8 g/dL (1.6-3.3); Total Protein 4.9 g/dL (6.2-8.2)
[2024-10-14 08:51] LABS: Basophils # (A) 0.04 X 10*3/uL (0.00-0.10); Basophils % (A) 0.4 %; Eosinophils % (A) 1.9 %; HGB 8.9 g/dL (12.0-15.0); Lymphocytes # (A) 1.51 X 10*3/uL (0.90-5.00); Lymphocytes % (A) 14.7 %; MCH 33.7 pg (27.0-32.0); MCV 102.3 FL (80.0-97.0); Mean Platelet Volume 9.8 FL (9.5-12.2); Monocytes # (A) 0.95 X 10*3/uL (0.20-1.00); Monocytes % (A) 9.3 %; NRBC Per 100 WBC 0.02 X 10*3/uL (0.00-0.01); Neutrophils # (A) 7.39 X 10*3/uL (1.80-7.70); Platelet Count 226 X 10*3/uL (140-440); RBC 2.64 X 10*6/uL (4.10-5.20); RDW 13.2 % (11.5-14.5); WBC 10.26 X 10*3/uL (4.50-10.00)
[2024-10-14] MEDS: MAGNESIUM SULFATE-D5W PMX 1 GM in DEXTROSE/WATER 1 100ML.BAG IVPB SCH (11:52)
[2024-10-14] MEDS: POTASSIUM CHLORIDE ER 20 MEQ TAB.ER PO SCH (11:52)
--- NOTE | 2024-10-14 12:50 | P.PN ---
Subjective Progress Note Date: 10/13/24 Principal diagnosis: Reason for follow-up is leukocytosis question of UTI Patient is a 89-year-old female with a past medical history significant for hypertension hyperlipidemia atrial fibrillation hypothyroidism, patient was brought into the hospital concern for a syncopal episode at home patient did have a some mental status changes elevated white count positive UA concerning for symptomatic UTI. On today's evaluation that is 10/13/2024,the patient denies any fever or any chills, patient is breathing comfortably on room air, the patient denies chest pain shortness of breath and no significant cough, patient denies abdominal pain, no nausea vomiting has been complaining of some diarrhea after getting the contrast for the CT. Patient white count is 11.46, creatinine 0.49 CT abdominal pelvis did not show any acute intra-abdominal pathology blood and urine cultures have been negative Objective - Vital Signs Vital signs: Vital Signs Temp 98.3 F 10/13/24 14:44 Pulse 74 10/13/24 14:44 Resp 16 10/13/24 07:34 BP 137/67 10/13/24 14:44 Pulse Ox 95 10/13/24 07:34 FiO2 Intake & Output 10/12/24 10/13/24 10/13/24 18:59 06:59 18:59 Intake Total 221 236 Balance 221 236 Intake: Oral 221 236 Other: Voiding Method Toilet Toilet # Voids 2 1 # Bowel Movements 1 - Exam GENERAL DESCRIPTION: An elderly female lying in bed in no distress RESPIRATORY SYSTEM: Unlabored breathing , decreased breath sounds at bases HEART: S1 S2 regular rate and rhythm , ABDOMEN: Soft , no tenderness EXTREMITIES: No edema feet - Labs CBC & Chem 7: 10/14/24 04:36 10/14/24 04:36 Labs: Abnormal Lab Results - Last 24 Hours (Table) 10/13/24 10/13/24 Range/Units 04:22 04:22 WBC 11.46 H (4.50-10.00) 10*3/uL RBC 2.80 L (4.10-5.20) 10*6/uL Hgb 9.6 L (12.0-15.0) g/dL Hct 27.5 L (37.2-46.3) % MCV 98.2 H (80.0-97.0) fL MCH 34.3 H (27.0-32.0) pg Immature Gran # 0.19 H (0.00-0.04) 10*3/uL Neutrophils # 8.43 H (1.80-7.70) 10*3/uL Monocytes # 1.06 H (0.20-1.00) 10*3/uL Sodium 134 L (137-145) mmol/L Potassium 3.4 L (3.5-5.1) mmol/L Creatinine 0.49 L (0.52-1.04) mg/dL Glucose 107 H (74-99) mg/dL Microbiology - Last 24 Hours (Table) 10/10/24 22:34 Blood Culture - Preliminary Blood Assessment and Plan (1) Leukocytosis Current Visit: Yes Status: Acute Code(s): D72.829 - ELEVATED WHITE BLOOD CELL COUNT, UNSPECIFIED SNOMED Code(s): 478971331 (2) UTI (urinary tract infection) Current Visit: Yes Status: Acute Code(s): N39.0 - URINARY TRACT INFECTION, SITE NOT SPECIFIED SNOMED Code(s): 80305198 Plan: 1patient presented to hospital with weakness did have syncopal episode patient did have suprapubic pain as well as tenderness positive UA concerning for symptomatic UTI likely from enteric gram-negative pathogen 2-patient did have improvement clinically with Rocephin continue however blood and urine culture have been negative 3patient did have CT abdominal pelvis did not show any acute abnormality urine has been negative blood cultures pending 4white count mildly elevated continue with Rocephin while waiting for the blood culture to finalize Dictation was produced using [employer] dictation software. please excuse any grammatical, word or spelling errors. Time with Patient: Less than 30
--- NOTE | 2024-10-14 12:51 | P.PN ---
Subjective Progress Note Date: 10/14/24 Principal diagnosis: Reason for follow-up is leukocytosis question of UTI Patient is a 89-year-old female with a past medical history significant for hypertension hyperlipidemia atrial fibrillation hypothyroidism, patient was brought into the hospital concern for a syncopal episode at home patient did have a some mental status changes elevated white count positive UA concerning for symptomatic UTI. On today's evaluation that is 10/14/2024,the patient remains to be afebrile, patient is on room air not requiring supplemental oxygen and denies any shortness of breath no chest pain or cough.Patient denies having any nausea or vomiting, no abdominal pain and still have some diarrhea. Patient white count is down to 10.26 creatinine 0.5 blood and urine has been negative Objective - Vital Signs Vital signs: Vital Signs Temp 98.2 F 10/14/24 07:02 Pulse 70 10/14/24 07:02 Resp 16 10/14/24 07:02 BP 156/74 10/14/24 07:02 Pulse Ox 95 10/14/24 07:02 FiO2 Intake & Output 10/13/24 10/14/24 10/14/24 18:59 06:59 18:59 Intake Total 354 Balance 354 Intake: Oral 354 Other: Voiding Method Toilet # Voids 3 2 - Exam GENERAL DESCRIPTION: An elderly female lying in bed in no distress RESPIRATORY SYSTEM: Unlabored breathing , decreased breath sounds at bases HEART: S1 S2 regular rate and rhythm , ABDOMEN: Soft , no tenderness EXTREMITIES: Significant bruising to the left posterior leg - Labs CBC & Chem 7: 10/14/24 04:36 10/14/24 04:36 Labs: Abnormal Lab Results - Last 24 Hours (Table) 10/14/24 10/14/24 Range/Units 04:36 04:36 WBC 10.26 H (4.50-10.00) X 10*3/uL RBC 2.64 L (4.10-5.20) X 10*6/uL Hgb 8.9 L (12.0-15.0) g/dL Hct 27.0 L (37.2-46.3) % MCV 102.3 H (80.0-97.0) FL MCH 33.7 H (27.0-32.0) pg Immature Gran # 0.17 H (0.00-0.04) X 10*3/uL NRBC/100 WBC Diff 0.02 H (0.00-0.01) X 10*3/uL Creatinine 0.5 L (0.6-1.5) mg/dL BUN/Creatinine Ratio 28.60 H (12.00-20.00) Ratio Calcium 8.4 L (8.7-10.3) mg/dL Magnesium 1.4 L (1.5-2.4) mg/dL Total Protein 4.9 L (6.2-8.2) g/dL Albumin 3.1 L (3.8-4.9) g/dL Microbiology - Last 24 Hours (Table) 10/10/24 22:34 Blood Culture - Preliminary Blood Assessment and Plan (1) Leukocytosis Current Visit: Yes Status: Acute Code(s): D72.829 - ELEVATED WHITE BLOOD CELL COUNT, UNSPECIFIED SNOMED Code(s): 896878538 (2) UTI (urinary tract infection) Current Visit: Yes Status: Acute Code(s): N39.0 - URINARY TRACT INFECTION, SITE NOT SPECIFIED SNOMED Code(s): 07035899 Plan: 1patient presented to hospital with weakness did have syncopal episode patient did have suprapubic pain as well as tenderness positive UA concerning for symptomatic UTI likely from enteric gram-negative pathogen 2-patient urine culture have been negative, blood culture has been pending, did have CT abdominal pelvis did not show any acute abnormality urine has been negative blood cultures pending 3the patient remains to be afebrile white count trending down to continue with Rocephin consider short course of oral Ceftin on discharge Dictation was produced using [email or web address] dictation software. please excuse any grammatical, word or spelling errors.
--- NOTE | 2024-10-14 13:05 | P.CRDCN ---
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 Patient follows in the office with Dr. Salazar. We have been asked to see the patient in consultation for A-fib and large hematoma. Patient examined at the bedside. Patient has a longstanding history of hip pain. She did have a hip injection in August 2024. Patient states she was recently at [facility] for hip pain. She states she was discharge home the same day and received pain medications. Once home, she had increasing pain. She states she was walking when she almost fell and her family caught her. She did not lose consciousness. She denied any chest pain or pressure. Denies SOB. She does not think she had any trauma to her leg. She does have a large hematoma to her left leg with a 4 gram drop in hemoglobin. DIAGNOSTICS: - EKG reveals paced rhythm. - Laboratory data: WBC 10.26. Hemoglobin 8.9. Platelet count 226. Sodium 139. Potassium 3.5. BUN 14. Creatinine 0.5. Magnesium 1.4. - Current home cardiac medications include hydrochlorothiazide 12.5 mg daily, atorvastatin 20 mg at night, amlodipine 5 mg twice a day, lisinopril 20 mg twice a day, metoprolol tartrate 50 mg twice a day, Xarelto 20 mg at night. - Most recent echocardiogram obtained in May 2021 revealed ejection fra ction 55%, mild to moderate mitral and aortic insufficiency with moderate pulmonary hypertension - Cardiac catheterization history: 2013 revealing no significant CAD - Patient underwent Lexiscan stress test in December 2022 which was negative for ischemia REVIEW OF SYSTEMS: At the time of my exam: CONSTITUTIONAL: Denies fever or chills. HEENT: Denies blurred vision, vision changes, or eye pain. Denies hemoptysis CARDIOVASCULAR: Denies chest pain. Denies orthopnea. Denies PND. Denies palpitat ions RESPIRATORY: Denies shortness of breath. GASTROINTESTINAL: Denies abdominal pain. Denies nausea or vomiting. HEMATOLOGIC: Denies bleeding disorders. GENITOURINARY: Denies any blood in urine. SKIN: Denies pruitis. Denies rash. PHYSICAL EXAM: VITAL SIGNS: Reviewed. GENERAL: Well-developed in no acute distress. HEENT: Head is normocephalic. Pupils are equal, round. Sclerae anicteric. Mucous membranes of the mouth are moist. Neck supple. No JVD or thyromegaly LUNGS: Respirations even and unlabored. Lungs essentially clear to auscultation bilaterally. HEART: Regular rate and rhythm. S1 and S2 heard. ABDOMEN: Soft. Nondistended. Nontender. EXTREMITIES: Normal range of motion. No clubbing or cyanosis. Peripheral pulses intact. No lower extremity edema NEUROLOGIC: Awake and alert. Oriented x 3. ASSESSMENT: Left hip pain Left hip hematoma Acute blood loss anemia secondary to above Urinary tract infection Paroxysmal atrial fibrillation History of complete heart block with dual-chamber pacemaker implantation, [employer] Hypertension Hyperlipidemia Moderate pulmonary hypertension PLAN: Hold Xarelto. CBC in 1 week. Patient to follow up in the office with Dr. Mcpherson as Dr. Salazar is retiring. Patient states she has on anticoagulation for over 10 years and has never had any bleeding issues. Can likely resume Xarelto at her follow up appointment with [place] if hemoglobin is stable. Consider Watchman device if patient continues to have issues with bleeding on anticoagulation. Patient is stable for discharge home today from a cardiac standpoint Nurse practitioner note has been reviewed by physician. Signing provider agrees with the documented findings, assessment, and plan of care documented by PERIODONTAL ASSISTANT as a scribe. Past Medical History Past Medical History: Atrial Fibrillation, Hyperlipidemia, Hypertension, Thyroid Disorder Additional Past Medical History / Comment(s): Bradycardia with pacemaker, past slight lower GI bleed, hemorrhoids, hypothyroid, nephrolithiasis. History of Any Multi-Drug Resistant Organisms: None Reported Past Surgical History: AICD, Breast Surgery, Heart Catheterization, Pacemaker, Tonsillectomy, Tubal Ligation Additional Past Surgical History / Comment(s): pacemaker, lithotripsy, bilateral breast benign bxs, + blood per cologard-colonoscopy about 05/2017-normal Past Anesthesia/Blood Transfusion Reactions: No Reported Reaction Type of Cardiac Device: Permanent Pacemaker Device Placement Date:: 2013 Past Psychological History: No Psychological Hx Reported Smoking Status: Never smoker Past Alcohol Use History: Occasional Past Drug Use History: None Reported - Past Family History Father Family Medical History: Myocardial Infarction (GA) Additional Family Medical History / Comment(s): Father of a GA at the age of 63 yrs. Mother Additional Family Medical History / Comment(s): Mother had issues with alcohol and PDA. Medications and Allergies Home Medications Medication Instructions Recorded Confirmed Type Levothyroxine Sodium [Synthroid] 25 mcg PO DAILY 12/13/13 10/10/24 History amLODIPine 5 mg PO BID 12/13/13 10/10/24 History lisinopriL [Prinivil] 20 mg PO BID 12/13/13 10/10/24 History Metoprolol Tartrate [Lopressor] 50 mg PO BID 10/12/18 10/10/24 History Atorvastatin [Lipitor] 20 mg PO HS 10/10/24 10/10/24 History Celecoxib [CeleBREX] 100 mg PO BID PRN 10/10/24 10/10/24 History HYDROcodone/APAP 5-325MG [[place] 1 tab PO DIRECTED PRN 10/10/24 10/10/24 History 5-325] Omeprazole 20 mg PO BID 10/10/24 10/10/24 History Rivaroxaban [Xarelto] 20 mg PO HS 10/10/24 10/10/24 History hydroCHLOROthiazide [Hydrodiuril] 12.5 mg PO DAILY 10/10/24 10/10/24 History Allergies Allergy/AdvReac Type Severity Reaction Status Date / Time narcotic AdvReac Nausea & Uncoded 10/10/24 17:55 Vomiting Physical Exam Vitals: Vital Signs Temp Pulse Pulse Pulse Pulse Pulse Pulse 10/14/24 07:02 98.2 F 80 85 70 10/14/24 02:35 98.1 F 70 10/13/24 21:45 75 10/13/24 18:00 98.4 F 101 H 10/13/24 14:44 98.3 F 79 82 Pulse Resp BP BP BP BP Pulse Ox 10/14/24 07:02 16 149/76 146/77 156/74 95 10/14/24 02:35 18 125/72 95 10/13/24 21:45 133/77 95 10/13/24 18:00 16 161/83 94 L 10/13/24 14:44 74 121/70 124/73 137/67 Intake and Output 10/13/24 10/14/24 10/14/24 22:59 06:59 14:59 Intake Total 118 Balance 118 Intake: Oral 118 Other: Voiding Method Toilet # Voids 3 2 Results 10/14/24 04:36 10/14/24 04:36 Cardiac Enzymes 10/14/24 Range/Units 04:36 AST 28 (13-35) U/L CBC 10/14/24 Range/Units 04:36 WBC 10.26 H (4.50-10.00) X 10*3/uL RBC 2.64 L (4.10-5.20) X 10*6/uL Hgb 8.9 L (12.0-15.0) g/dL Hct 27.0 L (37.2-46.3) % Plt Count 226 (140-440) X 10*3/uL Comprehensive Metabolic Panel 10/14/24 Range/Units 04:36 Sodium 139 (135-145) mmol/L Potassium 3.5 (3.5-5.5) mmol/L Chloride 103 (96-109) mmol/L Carbon Dioxide 25.8 (21.6-31.8) mmol/L BUN 14.3 (9.0-27.0) mg/dL Creatinine 0.5 L (0.6-1.5) mg/dL Glucose 106 (70-110) mg/dL Calcium 8.4 L (8.7-10.3) mg/dL AST 28 (13-35) U/L ALT 28 (8-44) U/L Alkaline Phosphatase 52 (41-126) U/L Total Protein 4.9 L (6.2-8.2) g/dL Albumin 3.1 L (3.8-4.9) g/dL Current Medications Generic Name Dose Route Start Last Admin Trade Name Freq PRN Reason Stop Dose Admin Hydrocodone Bitart/Acetaminophen 1 each 10/10/24 21:52 10/14/24 06:08 Hydrocodone/Apap 5-325mg 1 Each Tab PO 1 each Q8H PRN Administration Pain Atorvastatin Calcium 20 mg 10/11/24 21:00 10/13/24 21:42 Atorvastatin 20 Mg Tab PO 20 mg HS GBARIELA Administration Ceftriaxone Sodium 1 gm/ 50 mls @ 100 mls/hr 10/11/24 18:00 10/13/24 18:15 Sodium Chloride IVPB 100 mls/hr Q24H GABRIELA Administration Protocol Magnesium Sulfate/Dextrose 1 100 mls @ 100 mls/hr 10/14/24 10:30 gm/ IV Solution IVPB 10/14/24 12:29 Q1H GABRIELA Levothyroxine Sodium 25 mcg 10/11/24 06:00 10/14/24 06:08 Levothyroxine 25 Mcg Tab PO 25 mcg DAILY@0600 GABRIELA Administration Meloxicam 7.5 mg 10/11/24 12:10 10/13/24 05:42 Meloxicam 7.5 Mg Tab PO 7.5 mg BID PRN Administration Pain Metoprolol Tartrate 50 mg 10/11/24 09:00 10/14/24 09:51 Metoprolol Tartrate 25 Mg Tab PO 50 mg BID GABRIELA Administration Miscellaneous Information 1 each 10/13/24 10:53 Magnesium Replacement Protocol 1 Each Misc MISCELLANE DAILY PRN Per Protocol Protocol Miscellaneous Information 1 each 10/13/24 10:53 Potassium Replacement Protocol 1 Each Misc MISCELLANE DAILY PRN Per Protocol Protocol Naloxone HCl 0.2 mg 10/10/24 15:53 Naloxone 0.4 Mg/Ml 1 Ml Vial IV Q2M PRN Opioid Reversal Pantoprazole Sodium 40 mg 10/11/24 07:30 10/14/24 06:08 Pantoprazole 40 Mg Tablet PO 40 mg [id number] GABRIELA Administration Potassium Chloride 20 meq 10/14/24 11:00 Potassium Chloride Er 20 Meq Tab.Er PO 10/14/24 12:01 Q1HR GABRIELA Rivaroxaban 15 mg 10/10/24 20:04 10/13/24 17:33 Rivaroxaban 15 Mg Tab PO 15 mg W/SUPPER GABRIELA Administration Protocol Intake and Output 10/13/24 10/14/24 10/14/24 22:59 06:59 14:59 Intake Total 118 Balance 118 Intake: Oral 118 Other: Voiding Method Toilet # Voids 3 2 10/14/24 04:36 10/14/24 04:36
[2024-10-14 15:37] VITALS: BP 111/53; PULSE 76; RESP 17; TEMP 98.1
== END 2024-10-14 16:52 | disposition home or self-care (01) | DRG 872 ==
LOC: EC 09:08 → 6NMEDSUR 15:54 → OBSVTOIN 10-11 12:12
PROVIDERS: ADMIT Internal Medicine; ATTEND Internal Medicine
DX: A41.9 Sepsis, unspecified organism (principal); D62 Acute posthemorrhagic anemia; E87.1 Hypo-osmolality and hyponatremia; I27.20 Pulmonary hypertension, unspecified; R55 Syncope and collapse; I48.0 Paroxysmal atrial fibrillation; E03.9 Hypothyroidism, unspecified; I10 Essential (primary) hypertension; N39.0 Urinary tract infection, site not specified; M79.89 Other specified soft tissue disorders; E87.6 Hypokalemia; Z79.890 Hormone replacement therapy; E78.5 Hyperlipidemia, unspecified; M16.12 Unilateral primary osteoarthritis, left hip; M70.62 Trochanteric bursitis, left hip; Z79.01 Long term (current) use of anticoagulants; Z79.1 Long term (current) use of non-steroidal anti-inflammatories (NSAID); Z79.899 Other long term (current) drug therapy; Z82.49 Family history of ischemic heart disease and other diseases of the circulatory system; Z88.5 Allergy status to narcotic agent; Z87.19 Personal history of other diseases of the digestive system; Z95.810 Presence of automatic (implantable) cardiac defibrillator; M54.16 Radiculopathy, lumbar region
CPT/HCPCS: 36415; 73521; 74177; 80048; 80053; 81001; 83735; 84484; 85025; 85610; 85730; 87040; 87086; 93005; 96361; 96374; 96375; 99285